=== PATIENT | male | born 1970 | race Caucasian/White ===

== ENCOUNTER 2021-07-01 10:17 | Emergency (ER) | payer OTHER ==
[2021-07-01 11:09] VITALS: BP 145/80; PULSE 81; RESP 18; TEMP 98.3
--- NOTE | 2021-07-01 11:09 | ED ---
Back Pain HPI - General Source: patient Mode of arrival: wheelchair Limitations: no limitations <Laurie Aguilar - Last Filed: 07/01/21 11:05> - General Source: patient, RN notes reviewed Mode of arrival: ambulatory Limitations: no limitations <Albert Jain - Last Filed: 07/01/21 13:23> - General Chief Complaint: Back Pain/Injury Stated Complaint: back pain Time Seen by Provider: 07/01/21 11:06 - History of Present Illness Initial Comments: Patient is a 50-year-old male, with hx of HTN, presenting to emergency Department with complaints of lower back pain 2 days. Patient states his back pain started after vacuuming with a shop vac 2 days ago. He denies any previous surgeries. No falls or trauma. Pain is rated a 6/10 when sitting and 11/10 with standing. No fevers or chills. Patient has some radiation of pain into the left leg, no numbness and tingling today. No bladder or bowel incontinence, no saddle paresthesias. (Laurie Aguilar) - Related Data Home Medications Medication Instructions Recorded Confirmed Atorvastatin [Lipitor] 20 mg PO DAILY 07/01/21 07/01/21 Loratadine [Claritin] 10 mg PO DAILY PRN 07/01/21 07/01/21 lisinopriL [Zestril] 10 mg PO DAILY 07/01/21 07/01/21 Previous Rx's Medication Instructions Recorded Cyclobenzaprine [Flexeril] 10 mg PO TID PRN #15 tab 07/01/21 predniSONE 50 mg PO DAILY #5 tab 07/01/21 Allergies Allergy/AdvReac Type Severity Reaction Status Date / Time No Known Allergies Allergy Verified 07/01/21 12:08 Review of Systems ROS Other: All systems not noted in ROS Statement are negative. <Laurie Aguilar - Last Filed: 07/01/21 11:05> ROS Other: All systems not noted in ROS Statement are negative. <Albert Jain - Last Filed: 07/01/21 13:23> ROS Statement: Those systems with pertinent positive or pertinent negative responses have been documented in the HPI. General Exam Limitations: no limitations General appearance: alert, in no apparent distress Head exam: Present: atraumatic Eye exam: Present: normal appearance <Laurie Aguilar - Last Filed: 07/01/21 11:05> Eye exam: Present: normal appearance, PERRL, EOMI. Absent: scleral icterus, conjunctival injection, periorbital swelling ENT exam: Present: normal exam, mucous membranes moist Neck exam: Present: normal inspection. Absent: tenderness, meningismus, lymphadenopathy Respiratory exam: Present: normal lung sounds bilaterally. Absent: respiratory distress, wheezes, rales, rhonchi, stridor Cardiovascular Exam: Present: regular rate, normal rhythm, normal heart sounds. Absent: systolic murmur, diastolic murmur, rubs, gallop, clicks GI/Abdominal exam: Present: soft, normal bowel sounds. Absent: distended, tenderness, guarding, rebound, rigid Extremities exam: Present: normal inspection, full ROM, normal capillary refill. Absent: tenderness, pedal edema, joint swelling, calf tenderness Back exam: Present: normal inspection Neurological exam: Present: alert, oriented X3, CN II-XII intact Psychiatric exam: Present: normal affect, normal mood Skin exam: Present: warm, dry, intact, normal color. Absent: rash <Albert Jain - Last Filed: 07/01/21 13:23> Course Vital Signs 07/01/21 07/01/21 11:06 12:08 Temperature 98.3 F Pulse Rate 81 Respiratory 18 18 Rate Blood Pressure 145/80 O2 Sat by Pulse 98 Oximetry Medical Decision Making <Albert aJin - Last Filed: 07/01/21 13:23> - Medical Decision Making Acute lumbar sprain, acute on chronic back pain. Pain treatment with high-dose steroids and muscle relaxant and pain management plan. Patient has no red flag symptoms. (Albert Jain) Disposition <Laurie Aguilar - Last Filed: 07/01/21 11:05> Is patient prescribed a controlled substance at d/c from ED?: No Time of Disposition: 13:23 <Albert Jain - Last Filed: 07/01/21 13:23> Clinical Impression: Lumbar back pain, Acute lumbar myofascial strain, Strain of lumbar region Disposition: HOME SELF-CARE Instructions (If sedation given, give patient instructions): Acute Low Back Pain (ED) Additional Instructions: Please return to the Emergency Department if symptoms worsen or any other concerns. Prescriptions: Cyclobenzaprine [Flexeril] 10 mg PO TID PRN #15 tab PRN Reason: Muscle Spasm predniSONE 50 mg PO DAILY #5 tab Referrals: Aubrey Cook MD [Primary Care Provider] - 1-2 days Brian Lyon DO [Doctor of Osteopathic Medicine] - 1-2 days
[2021-07-01] MEDS ORDERED: KETOROLAC 15 MG/ML 1 ML VIAL IM STA (11:54)
--- NOTE | 2021-07-01 12:57 | XR ---
Lumbosacral spine HISTORY: Low back pain 5 views of lumbosacral spine Lumbar vertebral bodies show preserved height and alignment, there is questionable spondylolysis at L 5, some rudimentary ribs suspected at L1. There is multilevel spondylosis. Some mild loss of disc hei ght at L4-5. Sclerosis is present in the posterior elements of the lower lumbar spine. Atheroscleroti c vascular calcifications are present in the aortoiliac distribution. IMPRESSION: Degenerative disc disease and facet arthropathy. Suspect spondylolysis at L5, CT or MRI c ould be performed for additional evaluation.
[2021-07-01] MEDS ORDERED: ACET/COD 300 MG/30 MG STARTER PACK 6 TAB BTL PO STA (13:22)
== END 2021-07-01 13:33 | disposition home or self-care (01) ==
LOC: EC 10:17
DX: S39.012A Strain of muscle, fascia and tendon of lower back, initial encounter (principal); I10 Essential (primary) hypertension; X50.0XXA Overexertion from strenuous movement or load, initial encounter
CPT/HCPCS: 99283; 96372; 72110; J1885

== ENCOUNTER → 2021-09-10 | Outpatient (CLI) | payer OTHER ==
--- NOTE | 2021-09-11 02:15 | CT ---
EXAMINATION TYPE: CT lumbar spine wo con DATE OF EXAM: 09/10/2021 COMPARISON: None HISTORY: low back pain CT DLP: 914 mGycm CONTRAST: None TECHNIQUE: CT of the lumbar spine is performed on a spiral scan at 3 mm thick sections. Reconstructed images are performed in the coronal and sagittal planes. FINDINGS: T12-L1: No focal disc herniation or significant disc bulge is evident. No spinal canal stenosis or neural foraminal stenosis is present. L1-L2: No focal disc herniation or significant disc bulge is evident. No spinal canal stenosis or n eural foraminal stenosis is present L2-L3: No focal disc herniation or significant disc bulge is evident. No spinal canal stenosis or n eural foraminal stenosis is present L3-L4: Minimal disc bulge may be present with intrathecal sac contact. No AP spinal canal stenosis or neural foraminal stenosis present. Facet hypertrophy is present. L4-L5: Broad-based disc bulge is present with mild anterior thecal sac compression. No AP spinal carolee l stenosis present. Neural foramen are patent. L5-S1: Mild broad-based disc bulge is present may have close approximation with the exiting S1 nerve roots adjacent to the thecal sac. No AP spinal canal stenosis present. No nerve root displacement is evident. Neural foramen appear patent. Note is made of bilateral spondylolysis at L5. Vertebral alignment appears normal. Disc heights appear preserved. IMPRESSION: 1. Broad-based disc bulging L3-4, L4-5, and L5-S1. 2. Spondylolysis of L5.
== END | disposition home or self-care (01) ==
LOC: RADCTMAIN 11:21
PROVIDERS: ATTEND Orthopaedic Surgery
DX: M51.27 Other intervertebral disc displacement, lumbosacral region (principal); M43.06 Spondylolysis, lumbar region
CPT/HCPCS: 72131

== ENCOUNTER → 2021-11-04 | Outpatient (CLI) | payer OTHER ==
[2021-11-04 12:57] VITALS: BP 153/88; PULSE 89; RESP 18; TEMP 98.4
--- NOTE | 2021-11-04 13:17 | P.CON ---
Consult Note - . Consult date: 11/04/21 Assessment/Plan:: HISTORY OF PRESENT ILLNESS: 50 year old male with a history of lumbar back pain due to lumbar degenerative disc disease, spondylosis and facet arthropathy presents today as a referral from Dr Lyon for a pain evaluation. States he was referred before an appt for CAGE in the lumbar spine on December 10, 2021 was set. Awaiting callback from staff at Dr Lyon's office. As of today, pt experiences " lumbar back pain all of my life." States his pain level waxes & wanes in intensity throughout the years, but is generally a 5 /10 in intensity currently. It is dull, achy, sore in the lower lumbar spine "like a band" left and right of midline and radiates down the sides of his legs towards his feet. Patient has underwent lumbar traction for years ever since he was a teenager. Pain is provoked with lifting and bending and twisting. Alleviated with medications, topicals, ice, heat, physical therapy years ago, stretching, rest and repositioning. PMH: HTN, Hyperlipidemia, Angina, Seasonal Allergies PSH: Jaw repair, bilateral CTS SH: 30 pack year tobacco user. Hx of ETOH abuse. No illicit drug use. Lives with parents FH: Non contributory All: NKDA Meds: See list REVIEW OF ORGAN SYSTEMS: CONSTITUTIONAL: No fevers or chills. No recent weight loss. HEENT: No visual acuity loss, eye pain, difficulties with hearing. No nosebleeds. No difficulty swallowing. RESPIRATORY: Denies any troubles with breathing or dyspnea on exertion. CARDIOVASCULAR: Denies any chest pain, palpitations, or recent heart attacks. GASTROINTESTINAL: Denies fatty food intolerance. Has change in bowel habits and gas bloat. GENITOURINARY: Denies any blood in urine. Has increased urinary frequency. NEUROLOGICAL: + numbness and tingling along the distal extremities. No seizure disorders or headaches. MUSCULOSKELETAL: + back pain SKIN: No skin cancer. No rash. PSYCHIATRIC: Denies current depression or suicidal thoughts. ENDOCRINE: Denies current thyroid disorders. Denies any blood sugar glucose intolerance. HEME/LYMPHATIC: Denies any lumps and bumps around the neck. History of deep venous thrombosis. ALLERGY/IMMUNOLOGY: No immunoglobulin therapy. No immune deficiencies. BREAST: Denies current breast lumps, pain or nipple discharge. Physical Examinations : Constitutional : Cooperative , not in acute distress . HEENT: Neck supple. No Lymphadenopathy. Normal thyroid size . Eyes no ptosis , no icterus, no photophobia . Hearing intact. Normal oropharynx. No Thrush. Respiratory : Chest clear to auscultations bilaterally. No wheezing. No rhonchi. Cardiovascular : Regular rate and rhythm , S1 / S2. No S3 . No S4. Gastrointestinal : Abdomen soft. No tenderness. Bowel sounds x 4. No organomegaly . Genitourinary : Deferred. Neurologic : Cranial nerve II to XII intact. No focal neurological deficits. Psychiatric : alert & oriented x 3. Matching mood & appropriate affect. Judgment & insight intact. Lymphatic No Lymphadenopathy. Musculoskeletal : Cervical Spine Motor strength in the deltoid and biceps: Normal right side. Normal Left side Motor strength biceps and the wrist extensors: Normal right side . Normal left side Motor strength in the triceps muscle: Normal right side. Normal left side Deep tendon reflexes: Normal at the biceps. Normal at Brachioradialis. Normal at triceps Cervical facet loading test: positive bilaterally Spurling test: positive bilaterally Neck distraction test: positive bilaterally Sulaiman sign: positive bilaterally Lumbar spine Motor strength lower extremities ,thigh and legs 5/5 Right side , 5/5 Left side Deep tendon reflexes : Normal Knee Jerk. Normal Ankle Jerk Lumbar facet Loading Test: positive Right / positive Left over L5 & S1 Range of motion of the lumbar spine Flexion 75 degrees, extension 10 degrees Straight Leg Raise test: Left/ Right positive at degree Isaac test: positive right / positive left. Severe tenderness over the Sacroiliac joint on the Right / Left sides Gaenslen test: positive bilaterally Seated flexion test: positive bilaterally. IMAGING CT Lumbar Spine from 09/10/2021 showed L3-L4 minimal disc bulge, L4-L5 broad based disc bulge, L5-S1 broad based disc bulge with approximation to the S1 nerve root and L5 spondylosis Assessment/ Plan : Recommendation of bilateral L5-S1 facet block/ medial branch blocks May need a series of 2 for sufficient pain relief May follow up with a bilateral RFA of the L5-S1 as necessary Risks benefits of procedure discussed and patient verbalized understanding Denies any spread and anticoagulant use All questions answered I have spent greater than 50 minutes on patient care today. Dr Andrew was available by phone for the evaluation of this patient. The time was used to review the medical records including relevant urine studies and Prescription history (MAPs), review of the available imaging, evaluation and examination of the patient, coordination of care with the medical staff and if applicable referring physicians, as well as creation of the medical record PQRS Measure Charge Sheet Mode of Arrival: Ambulatory - Pain Location Lower Back Non-Pharmacological Interventions: Chiropractic Treatment, Heat, Home Exercise, Ice, Inactivity, Massage, Physical Therapy, Stretching Pharmacological Interventions: Medication PQRS Narrative: Blood Pressure 153/88 Pain Intensity [Lower Back] 7 Scale Used Numeric (1 - 10) Hx Alcohol Use (MH) Yes: None in 2 1/2 yrs now. Home Medications: Ambulatory Orders Atorvastatin [Lipitor] 20 mg PO DAILY 07/01/21 Cyclobenzaprine [Flexeril] 10 mg PO TID PRN #15 tab 07/01/21 Loratadine [Claritin] 10 mg PO DAILY PRN 07/01/21 lisinopriL [Zestril] 10 mg PO DAILY 07/01/21 Nitroglycerin Sl Tabs [Nitrostat] 0.4 mg SUBLINGUAL Q5M PRN 10/29/21
== END ==
LOC: PNWHC3 12:28
PROVIDERS: ATTEND Physician Assistant Medical
DX: M48.061 Spinal stenosis, lumbar region without neurogenic claudication (principal); I10 Essential (primary) hypertension; E78.5 Hyperlipidemia, unspecified; Z79.899 Other long term (current) drug therapy
CPT/HCPCS: 99211

== ENCOUNTER → 2021-12-09 | Outpatient (CLI) | payer OTHER | END | disposition home or self-care (01) | LOC: LABPAT 10:14 | PROVIDERS: ATTEND Orthopaedic Surgery | DX: Z01.812 Encounter for preprocedural laboratory examination (principal); M47.816 Spondylosis without myelopathy or radiculopathy, lumbar region | CPT/HCPCS: 87070 ==

== ENCOUNTER 2021-12-10 05:53 | Inpatient (IN) | payer OTHER ==
--- NOTE | 2021-12-09 13:22 | P.HPOR ---
History of Present Illness H&P Date: 12/04/21 Chief Complaint: Low back pain, LE weakness Date of :[birth year] R14Age: 50 year Height: 5'9" Weight: 185 lbs BP:121/74 BMI: 27.32 kg/m2 Occupation: Ski Lift Operator VAS: 7 CHIEF COMPLAINT: Lumbar back pain HISTORY: Xrays No new xrays taken in office Trauma or injury yes Work-Related No Pain description aching, sharp. Location posterior diffuse Activity Modification yes , unable to perform bending/lifting/twisting motions regarding the low back. Hand Dominance right DOI: week of 05/30/2021 DOS: None TREATMENTS COMPLETED: 6 weeks of PT completed? Yes How many sessions? 12 Did it help? No Physician directed home exercise completed? Has trialed and failed to complete as they exacerbate his symptoms. Medications yes List: Medrol dose dulce, Flexeril with moderate improvement. Gabapentin, Mobic with mild improvements to his symptoms. Alternative interventions Chiropractic?: No Brace: No Injections No RFA: No SUBJECTIVE: Patient presents to the office for a pre-op review of the planned Lumbar 5 to Sacral 1 transforaminal lumbar interbody fusion. Since the time of the last appointment the patient denies any improvements to his symptoms. Overall he has failed to improve with all conservative modalities trialed thus far and is ready to proceed with the planned procedure. He notes continued disability and cannot complete many of his daily tasks due to his symptoms. Otherwise he continues to deny any bladder or bowel retention/incontinence, no perineal numbness/tingling, and ambulates independently. HPI: Patient last presented to the office on 10/14/2021 to review the results of his CT scan ordered after the time of the last appointment. Regarding his symptoms he notes that they have not changed since the time of the last appointment. He continues to note that he has difficulty with completing his daily activities as they exacerbate his symptoms. Otherwise the patient denies completing any new treatment modalities since the time of the last appointment. Overall the patient feels that his symptoms have continued to impede on his daily activities and he has failed to improve with any conservative treatments tried thus far. Patient continues to deny any bladder or bowel issues, no perineal numbness/tingling, and ambulates without the use of any aides. Patient last presented to the office on 09/02/2021. Since the time of the last appointment the patient notes that his symptoms have continued to persist. He does report improvements to his symptoms with taking Mobic, Gabapentin, and Flexeril but these are temporary. Overall he notes that he has not improved significantly with conservative treatments tried thus far. Otherwise he denies any bladder or bowel issues, no perineal numbness/tingling, and ambulates without the use of any aides. Mr. Garcia last presented to the office on 07/15/2021 for an evaluation of his low back. The patient reports that his symptoms have been ongoing for 2 weeks after bending over to pick something up and feeling a "snap" in his low back. Since this he notes that he has had severe pain in the low back along with an inability to perform bending/lifting/twisting motions. Since the initial injury he notes that he pain has waned mildly but is still limiting his daily functions severely. He notes an inability to work due to the pain. Patient denies any radicular pain. Regarding treatments he states that he has completed a Medrol dose dulce along with Flexeril that did improve his symptoms moderately. Otherwise the patient denies any bladder or bowel issues. Patient denies any numbness or tingling in the genitals. Levy does not present to the office with the use of any ambulatory aides. The patients' past social, medical, family, surgical history, as well as review of systems, have been reviewed. Please refer to the Neurosurgery History and Physical form that has been scanned in to our electronic medical record system. 14 points review of systems completed and as stated in HPI, all other systems reviewed are negative. Review of Systems 14 points review of systems completed and as stated in HPI, all other systems reviewed are negative. All systems: negative Past Medical History Past Medical History: Chest Pain / Angina, Hyperlipidemia, Hypertension, Musculoskeletal Disorder Additional Past Medical History / Comment(s): Palpitations. Spondylosis. History of Any Multi-Drug Resistant Organisms: None Reported Additional Past Surgical History / Comment(s): reconstruction maxilla and mandible for braces age 17. Past Anesthesia/Blood Transfusion Reactions: No Reported Reaction Past Psychological History: No Psychological Hx Reported Smoking Status: Current every day smoker Past Alcohol Use History: None Reported Additional Past Alcohol Use History / Comment(s): Smokes 1 ppd, since 17 yrs old. 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 Past Drug Use History: Marijuana Additional Drug Use History / Comment(s): Rare Marijuna use. - Past Family History Mother Family Medical History: No Reported History Medications and Allergies Home Medications Medication Instructions Recorded Confirmed Type Atorvastatin [Lipitor] 20 mg PO QAM 07/01/21 12/09/21 History Cyclobenzaprine [Flexeril] 10 mg PO TID PRN #15 tab 07/01/21 12/09/21 Rx Loratadine [Claritin] 10 mg PO DAILY PRN 07/01/21 12/09/21 History lisinopriL [Zestril] 10 mg PO QAM 07/01/21 12/09/21 History Nitroglycerin Sl Tabs [Nitrostat] 0.4 mg SUBLINGUAL Q5M PRN 10/29/21 12/09/21 History Meloxicam 15 mg PO DAILY 12/09/21 12/09/21 History Allergies Allergy/AdvReac Type Severity Reaction Status Date / Time No Known Allergies Allergy Verified 12/09/21 08:23 Physical Examination Osteopathic Statement: *. No significant issues noted on an osteopathic structural exam other than those noted in the History and Physical/Consult. PHYSICAL EXAMINATION: General: Awake, alert, appropriate for age, in no acute distress. HEENT: No unusual neck masses around region of lateral neck triangle, thyroid, supraclavicular groove Extremities: Skin warm and dry without acute lesions, coloration, temperature, skin intact, no tenderness or erythema Integument: Hairy patches: Absent Dorsal skin dimples: Absent Cafe au lait spots: Absent Surgical incisions: No Palpation: Please see Pain drawing on Intake sheet for further detail. Midline spinal tenderness: No E6 Paralumbar tenderness: mild E6 Parathoracic tenderness: No E6 Buttocks tenderness: No E6 Special findings: No POSTURAL and MUSCULO-SKELETAL EVALUATION: Coronal Balance: NEUTRAL Recumbent testing: Patient is able to lay flat on back Sagittal Balance: NEUTRAL Shoulder Profile: LEVEL Pelvic Girdle: LEVEL Neck ROM: UNRESTRICTED Lumbar ROM: RESTRICTED Shoulder ROM: Symmetrical Hip ROM: Symmetrical Knee ROM: Symmetrical Hands: Normal appearance, symmetrical Feet: Normal appearance, Symmetrical VASCULAR STATUS : LEFT RIGHT Wrist Pulses INTACT INTACT Pedal Pulses (Dors. pedis & post.tibialis) INTACT INTACT Color NORMAL NORMAL Edema Absent Absent NEUROLOGIC EXAMINATION: Mental Status:Awake and alert, fully oriented, with normal attention, concentration and memory, and fluent, appropriate speech. Cranial Nerves: I: Olfactory not tested. II: Visual acuity normal, no visual field deficit noted with confrontation. III,IV: Normal pupillary reflexes & intact extraocular movements without nystagmus. V,: Intact symmetrical facial sensation. VII: Intact symmetrical facial motor movement VIII: Hearing intact. IX,X: Intact gag, swallow, & normal voice. XI: Sternocleidomastoid, trapezius function intact. XII: Tongue midline with normal movements. L'hermitte's Sign: Negative / absent Spurling'Sign: Absent bilaterally. Cubital percussion test: Absent bilaterally. Karla-Tinel sign - Carpal region: Absent bilaterally. Straight Leg Raising: Absent bilaterally. Crossed straight leg raise: negative O8 MOTOR EXAM (0-5/5, N/T) STRENGTH RIGHT LEFT Shoulder Abd (not part of the [place] score) 5 5 Elbow Flexors 5 5 Elbow Extensor 5 5 Wrist Dorsiflexors 5 5 Finger Abductor 5 5 Jewel Hole Driller 5 5 Hip Flexor (Not part of [place] Motor score) 4 4 Knee Flexor 5 5 Knee Extensor 5 5 Ankle dorsiflexor 5 5 Ankle plantarflexion 4+ 4+ Extensor hallucis 5 5 Sit to stand took greater than 5 seconds REFLEXES(0-4/2, NT) RIGHT LEFT Upper Extremities 2 2 Lower Extremities 2 2 Pathological Reflexes RIGHT LEFT Benitez's Absent Absent Clonus Absent Absent Babinski Absent Absent # Indicates mechanical impairment Muscle appearance: Symmetrical, without signs of atrophy or dystrophy. Rectal Tone:Deferred Sensory system (0-4, N/T) Test type RU MIRACLE RL LL Joint-Position 2 2 2 2 Vibration 2 2 2 2 Pain & LT sense 2 2 2 2 Dermatomal Deficit: None None L4-5 L5-S1 Gait and Functional Evaluation: Ambulatory aids: Independent Romberg's test: Intact bilaterally Toe heel walk / heel-toe walk intact while maintaining satisfactory balance? yes Squatting/straightening w/o assistance to a min of 60 degree knee flexion? yes Single leg stance: intact Trendelenburg sign negative bilaterally Hand and finger dexterity intact bilaterally? yes Disdiadochokinesis examination negative bilaterally? yes Results RADIOGRAPHIC STUDIES: XRay taken on 07/15/21 of Lumbar Spine: This demonstrates bilateral L5 pars defects with spondylolysis and spondylolisthesis Grade I. There is some minor disc height loss at L5-S1, remainder of the discs appear of normal height and hydration. There is facet arthrosis noted at L5-S1 as well with overgrowth of interarticularis region. Overall alignment is fairly well maintained. There is no other fracture or dislocation at this time. No lesions. PI: LL is >10 60:49 deg AP pelvis shows congruent and level pelvis with no fracture. MRI scan from of Lumbar Spine: Outside MRI is reviewed. This demonstrates aformentioned L5-S1 b/l pars defects with Grade I anterior listhesis that reduces well on these supine films. Disc height and space at L5- S1 is relatively preserved on MRI, but L4-5 disc space is flattened and dehydrated. There is evidence of old disc herniation at L4-5 noted which causes minor stenosis at this level. There is little to no stenosis at L5-S1 at this time. No other lesion, fracture or dislocation is noted at this time. Assessment and Plan Assessment: It was my pleasure to have seen and examined Levy. I reviewed the patient's clinical syndrome, physical findings, and imaging studies during the appointment today. It is my impression that the patient has a diagnosis of. 1. 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 L5-S1 Spondylolysis I outlined the natural course history without intervention and various interventional options. Plan: Based on my findings I suggest the following course of action: 1. I discussed treatment options with the patient, including operative and non-operative options, and they have elected to proceed with the following surgical procedure: Lumbar 5 to Sacral 1 transforaminal lumbar interbody fusion The indications, risks, benefits, and alternatives to surgery were discussed with the patient at length. Specifically (but not limited to) the risks of infection, stiffness, recurrence of symptoms, need for revision surgery, local numbness, neurovascular injury, and blood clots were discussed. The patient's questions were answered. The decision to proceed was made. Consent will be obtained for the procedure. 2. Given a script for a LSO brace for him to wear post-operatively. Spine Surgery Risk Review Levy Garcia is presenting for evaluation of Lumbar pain. It was my pleasure to have seen and examined Levy Garcia. In our visit today we have had a chance to go over subjective complaints, physical examination findings and treatments including the natural course history without intervention and various interventional options. The patients imaging demonstrates Xrays: This demonstrates bilateral L5 pars defects with spondylolysis and spondylolisthesis Grade I. There is some minor disc height loss at L5-S1, remainder of the discs appear of normal height and hydration. There is facet arthrosis noted at L5-S1 as well with overgrowth of interarticularis region. Overall alignment is fairly well maintained. There is no other fracture or dislocation at this time. No lesions. PI: LL is >10 60:49 deg. AP pelvis shows congruent and level pelvis with no fracture. MRI: Outside MRI is reviewed. This demonstrates aformentioned L5-S1 b/l pars defects with Grade I anterior listhesis that reduces well on these supine films. Disc height and space at L5-S1 is relatively preserved on MRI, but L4-5 disc space is flattened and dehydrated. There is evidence of old disc herniation at L4-5 noted which causes minor stenosis at this level. There is little to no stenosis at L5-S1 at this time. No other lesion, fracture or dislocation is noted at this time. On physical exam, Levy Garcia demonstrates bilateral lower extremity radiculopathy with significant pain and weakness. Upon testing the patient does demonstrate L4_l5 right lower extremity dermatomal deficit and L5- S1 left lower extremity deficits. Lastly his ROM regarding the lumbar spine is restricted due to pain. I have explained to the patient that as their condition progresses it will cause further neurological deficits and eventual paralysis. Based on the patients imaging, physical exam, and the rapid progression and disabling nature of their symptoms, at this time I recommend surgery in the form or a: Lumbar 5 to Sacral 1 transforaminal lumbar interbody fusion. I discussed the risk and benefits of this procedure at length with Levy Garcia. The patient and his family agreed to considered pursuing the procedure abovementioned. Prior to surgery, she should follow up with her PCP (Cardio, ID, IM etc) for clearance. Questions were invited and answered, and the patient wishes to proceed as outlined below. Currently, I am recommendin.Lumbar 5 to Sacral 1 transforaminal lumbar interbody fusion 2.Follow up with PCP for surgical clearance 3.Review of surgical risks and benefits as well as an educational packet on the proposed surgical procedure. Risks: All surgical procedures come with inherent risks, including those related to positioning, anesthesia, intraoperative findings, and postoperative complications. It is important to understand that surgery does not come with any guarantee of a successful outcome as complications and adverse events are always possible. The patient was given a handout in office today discussing the surgical procedure and risks associated with the intervention, both of which were discussed with the patient. These risks include but are not limited to the following: * Experiencing same, different or even worse symptoms in back, neck, arms, or legs compared to before surgery. Requiring further surgery or other forms of treatment presently or at some time in the future at same or other levels of the intended spine surgery. On an extreme but fortunately relatively rare basis severe complication such as blindness, stroke, heart attack, temporary and/or permanent nerve injury, paralysis, coma, or may occur, sometimes without known explanation. Surgical complications may include but are not limited to risk of infection, fluid accumulation in the surgical dissection site, including a seroma or hematoma, that requires additional surgery, wound drainage, bleeding, new numbness or weakness, vision changes/loss, spinal fluid leakage, non-healing and/or infected incision, headaches, difficulty or inability to swallow, hoarseness, hemopneumothorax, pneumothorax, impotence, retrograde ejaculation, vaginal dryness; injury to nerves, spinal cord, blood vessels, lymphatics or other vital organs (i.e., bowel injury, injury to the great vessels); heterotopic bone formation; complications related to the hardware such as screws, rods, cages including misplaced hardware, device failure, instrumentation at the wrong spine level, hardware fracture/breakage, or hardware loosening; vertebral failure of the spinal column above or below the newly placed hardware; retained surgical instrumentations or devices and the need for further surgery. * Medical risks of the planned spine surgery include but are not limited to generalized Infections to the whole body or local areas outside of the surgical site (sepsis), heart attack, bleeding, anaphylaxis, meningitis, seizure, epilepsy, hearing loss, burn galicia, laceration of the head or other areas of the body, bruising, hypersensitivity of the skin, bladder over distension; allergic reaction; shoulder injury related to positioning; fat, blood and air clots to other areas of the body like heart, lungs, brain; failure of internal organs such as lungs, kidneys, liver and excessive bleeding. If blood transfusions are necessary, note that transfusions may cause intolerance reactions such as anaphylaxis or other complex reactions. Despite best efforts, the results of spine surgery might not heal in terms of bone, soft tissues such as skin, fascia, ligaments, and joints. Additionally, in order to achieve best possible results, spine surgery may be carried out beyond the initially planned levels and involve decompression, fusion including insertion of hardware at levels other than the original intended area of surgical interest change some portions of the procedure in order to ensure the best possible outcomes. With spine surgery and spinal fusion, there are different off label uses of instrumentation (devices, implants and hardware) as well as biological substances (bone morphogenic proteins, demineralized bone matrix) as well as using extra bone from allograft sources (i.e. cadaver bone) or autograft (iliac crest bone, ribs, or the spine itself). The patient has been given information about these practices and their inherent risks and benefits. [facility] is an educational center that serves as a training facility for [employer] and Nursing students. Physician assistants are medically trained surgical providers who function in the outpatient, inpatient, and operating room setting under the direct supervision of the attending surgeon. [facility] has multiple operating rooms with single and overlapping rooms running daily. They currently function under the required guidelines as produced by the [facility] Finance Committee with regards to the overlapping rooms and will continue to comply with changes to this policy as they occur. The requirements include and are complied with as follows: (1) the critical portions of the overlapping rooms will not occur at the same time, (2) the attending physician will be physically present during the critical portions of the procedure and immediately available during the entire case, and (3) a back-up attending is designated should the primary attending not be immediately available. The patient has had a chance to review all the listed information, has been given print outs detailing this information, and has had all his/her questions answered to their satisfaction. It was my pleasure to have seen and examined Levy Garcia. In our visit today we have had a chance to go over my understanding of our patient's current condition, the natural course history without intervention and various interventional options. Questions were invited and answered, and the patient wishes to proceed as outlined above. I have seen and examined the patient for 25 minutes and we have spent more than 50% of the time in repeat and detailed counseling about the patient's condition, its natural course history with out and as much as can be predicted with surgery and re-review of various surgical treatment options. In conclusion, Levy Garcia and his family requested we proceed with the above suggested surgery and are willing to accept risks and limitations of the suggested surgery as nature of the disease process and our best attempts at treatment for the condition. Thank you again for allowing us to be part of your patient's care. Please don't hesitate to contact me if you have any further questions. Signed and authenticated by: [employer] P:\\\\ppart\\\\[id number]\\\\[id number] \\d [facility] [address] [address]
[~2021-12-10 05:53] MED LIST: ACETAMINOPHEN TAB 500 MG TAB PO PRN; GABAPENTIN 300 MG CAP PO PRN; ONDANSETRON 4 MG/2 ML VIAL IVP PRN; TRANEXAMIC ACID 1,000 MG in SODIUM CHLORIDE 0.9% 100 ML IVPB PRN
[2021-12-10] MEDS ORDERED: ONDANSETRON 4 MG/2 ML VIAL IVP ONE (06:01)
[2021-12-10] MEDS ORDERED: LIDOCAINE 1% (10MG/ML) FOR IV START INTRADERMA PRN (06:01)
[2021-12-10] MEDS ORDERED: TRANEXAMIC ACID IN NACL,ISO-OS 100 ML IV PRN (06:43)
[2021-12-10] MEDS: LACTATED RINGERS 1,000 ML IV SCH (06:45)
[2021-12-10] MEDS ORDERED: HYDROmorphone 0.5 MG/0.5 ML SYRINGE IVP PRN (07:00)
[2021-12-10 07:11] LABS: HCT 40.3 % (39.0-53.0); HGB 14.2 gm/dL (13.0-17.5); MCHC 35.2 g/dL (31.0-37.0); MCV 91.1 fL (80.0-100.0); Mean Platelet Volume 8.7; Platelet Count 213 k/uL (150-450); RBC 4.43 m/uL (4.30-5.90); RDW 12.5 % (11.5-15.5); WBC 10.8 k/uL (3.8-10.6)
[2021-12-10 07:14] LABS: African American GFR (CKD) >90 (>60 ml/min/1.73 sqM); Anion Gap 6 mmol/L; Blood Urea Nitrogen 14 mg/dL (9-20); Calcium 9.4 mg/dL (8.4-10.2); Carbon Dioxide 25 mmol/L (22-30); Chloride 108 mmol/L (98-107); Glucose 100 mg/dL (74-99); Non-African American GFR(CKD) >90 (>60 ml/min/1.73 sqM); Potassium 4.2 mmol/L (3.5-5.1); Sodium 139 mmol/L (137-145)
[2021-12-10] MEDS ORDERED: LIDOCAINE 1% INJ 10MG/ML (20 ML MDV) ONE (07:22)
[2021-12-10] MEDS ORDERED: NEOSTIGMINE 1 MG/ML 10 ML VIAL ONE (07:22)
[2021-12-10] MEDS ORDERED: MIDAZOLAM 2 MG/2 ML VIAL ONE (07:22)
[2021-12-10] MEDS ORDERED: HYDROmorphone (PF) 1 MG/ML ONE (07:22)
[2021-12-10] MEDS ORDERED: GLYCOPYRROLATE 0.2 MG/ML 2 ML VIAL ONE (07:22)
[2021-12-10] MEDS ORDERED: SUCCINYLCHOLINE CHLORIDE 100 MG/5 ML SYR IV ONE (07:22)
[2021-12-10] MEDS ORDERED: ROCURONIUM 10 MG/ML (5 ML VIAL) IV ONE (07:22)
[2021-12-10] MEDS ORDERED: fentaNYL (PF) 50 MCG/ML 2 ML AMP ONE (07:22)
[2021-12-10] MEDS ORDERED: TRANEXAMIC ACID IN NACL,ISO-OS 1,000 MG/100 ML BAG ONE (07:22)
[2021-12-10] MEDS ORDERED: PROPOFOL 10 MG/ML 20 ML VIAL IV ONE (07:22)
[2021-12-10 07:31] LABS: INR 0.9 (<1.2); Prothrombin Time 10.3 sec (9.0-12.0)
[2021-12-10] MEDS ORDERED: BUPIVACAINE (PF) 0.25% 30 ML VIAL SQ ONE (08:33)
[2021-12-10] MEDS ORDERED: GELATIN SPONGE,ABSORB (LARGE) 1 EACH SPONGE MISCELLANE ONE (08:33)
[2021-12-10] MEDS ORDERED: THROMBIN (BOVINE) 5,000 UNIT VIAL TOPICAL ONE (08:34)
[2021-12-10] MEDS ORDERED: LACTATED RINGERS 1,000 ML IV ONE (09:13)
[2021-12-10] MEDS ORDERED: SENNOSIDES-DOCUSATE SODIUM 1 EACH TAB PO PRN (10:44)
[2021-12-10] MEDS ORDERED: MAGNESIUM HYDROXIDE 2,400 MG/10 ML CUP PO PRN (10:44)
[2021-12-10] MEDS ORDERED: ONDANSETRON 4 MG/2 ML VIAL IVP PRN (10:44)
[2021-12-10] MEDS ORDERED: bisacodyL 10 MG SUPP RECTAL PRN (10:44)
[2021-12-10] MEDS ORDERED: NA PHOS,M-B/NA PHOS,DI-BA 133 ML ENEMA RECTAL PRN (10:44)
[2021-12-10] MEDS ORDERED: MAG HYDROX/AL HYDROX/SIMETH 30 ML CUP PO PRN (10:44)
[2021-12-10] MEDS ORDERED: HYDROcodone/APAP 7.5-325MG 1 EACH TAB PO PRN (10:51)
--- NOTE | 2021-12-10 11:48 | FL ---
Fluoroscopy HISTORY: Posterior lumbar fusion 2 minutes 24 seconds fluoroscopy time supplied to the referring clinician. 9 intraoperative C-arm im ages document the procedure. See dictated report from orthopedic surgery.
[2021-12-10] MEDS: SODIUM CHLORIDE 0.9% 1,000 ML IV SCH (13:57)
[2021-12-10] MEDS: HYDROcodone/APAP 7.5-325MG 1 EACH TAB PO PRN ×2 (15:06→21:51)
--- NOTE | 2021-12-10 16:11 | P.PN ---
Progress Note - Text Progress Note Date: 12/10/21 Brief postoperative note patient seen and examined the floor is doing well. He is sitting up eating dinner. States he has some pain on the left-hand side of his low back but otherwise is doing well. His been up and walking. Denies any perineal numbness tingling. Denies fevers chills shortness of breath or chest pain. We will continue standard postoperative care and likely discharge him tomorrow.
[2021-12-10] MEDS: HYDROmorphone 1 MG/ML 1 ML SYRINGE IVP PRN ×3 (17:37→23:33)
[2021-12-10] MEDS: CYCLOBENZAPRINE 5 MG TAB PO PRN (21:52)
--- NOTE | 2021-12-10 22:35 | P.CONS ---
History of Present Illness - History of Present Illness This is a pleasant 51 years old male with past medical history of Chest Pain / Angina, Hyperlipidemia, Hypertension Patient presents because of low back pain been going on for several weeks. He has some mild weakness on his legs more of the left side prior to the surgery. And reports improvement in his weakness. He is able to walk. He denies numbness or bowel issue or urinary incontinence. He denies any other symptoms. No chest pain or dyspnea. No vomiting or diar sabina. No abdominal pain or urinary complaints. No headache or dizziness or weakness or numbness He denies alcohol or illicit drugs however he smokes about 1 pack per day and he is counseled but he declined nicotine patch Previous MRI showing L5-S1 b/l pars defects with Grade I anterior listhesis that reduces well on these supine films. Disc height and space at L5-S1 is relatively preserved on MRI, but L4-5 disc space is flattened and dehydrated. There is evidence of old disc herniation at L4-5 noted which causes minor stenosis at this level. There is little to no stenosis at L5-S1 at this time. No other lesion, fracture or dislocation is noted at this time (per Records) Review of Systems CONSTITUTIONAL: No fever, no malaise, no fatigue. HEENT: No recent visual problems or hearing problems. Denied any sore throat. CARDIOVASCULAR: No orthopnea, PND, no palpitations, no syncope. PULMONARY: No shortness of breath, no cough, no hemoptysis. GASTROINTESTINAL: No diarrhea, no nausea, no vomiting, no abdominal pain. Normoactive bowel sounds. NEUROLOGICAL: No headaches, no weakness, no numbness. HEMATOLOGICAL: Denies any bleeding or petechiae. GENITOURINARY: Denies any burning micturition, frequency, or urgency. MUSCULOSKELETAL/RHEUMATOLOGICAL: Denies any joint pain, swelling, or any muscle pain. ENDOCRINE: Denies any polyuria or polydipsia. Past Medical History Past Medical History: Chest Pain / Angina, Hyperlipidemia, Hypertension, Musculoskeletal Disorder Additional Past Medical History / Comment(s): Palpitations. Spondylosis. History of Any Multi-Drug Resistant Organisms: None Reported Additional Past Surgical History / Comment(s): reconstruction maxilla and mandible for braces age 17. Past Anesthesia/Blood Transfusion Reactions: No Reported Reaction Past Psychological History: No Psychological Hx Reported Smoking Status: Current every day smoker Past Alcohol Use History: None Reported Additional Past Alcohol Use History / Comment(s): Smokes 1 ppd, since 17 yrs old. 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 Past Drug Use History: Marijuana Additional Drug Use History / Comment(s): Rare Marijuna use. - Past Family History Mother Family Medical History: No Reported History Medications and Allergies Home Medications Medication Instructions Recorded Confirmed Type Atorvastatin [Lipitor] 20 mg PO QAM 07/01/21 12/10/21 History Cyclobenzaprine [Flexeril] 10 mg PO TID PRN #15 tab 07/01/21 12/10/21 Rx Loratadine [Claritin] 10 mg PO DAILY PRN 07/01/21 12/10/21 History lisinopriL [Zestril] 10 mg PO QAM 07/01/21 12/10/21 History Nitroglycerin Sl Tabs [Nitrostat] 0.4 mg SUBLINGUAL Q5M PRN 10/29/21 12/10/21 History Meloxicam 15 mg PO DAILY 12/09/21 12/10/21 History Allergies Allergy/AdvReac Type Severity Reaction Status Date / Time No Known Allergies Allergy Verified 12/10/21 06:24 Physical Exam Vitals: Vital Signs Temp Pulse Resp BP Pulse Ox 12/10/21 13:43 97.9 F 67 114/73 98 12/10/21 13:19 75 16 110/70 96 12/10/21 12:36 61 16 110/68 100 12/10/21 12:17 53 L 16 106/64 99 12/10/21 12:03 51 L 16 103/59 99 12/10/21 11:47 54 L 16 99/58 97 12/10/21 11:32 55 L 16 110/67 91 L 12/10/21 11:17 62 16 112/62 94 L 12/10/21 11:07 63 16 116/59 96 12/10/21 10:52 97.2 F L 63 16 117/64 100 12/10/21 06:22 98.0 F 90 16 121/62 98 Intake and Output 12/10/21 12/10/21 12/10/21 06:59 14:59 22:59 Intake Total 100 1550 Output Total 50 Balance 100 1500 Intake: IV 100 1550 Output: Estimated Blood Loss 50 Other: Weight 88.3 kg 88.3 kg GENERAL: The patient is alert and oriented x3, not in any acute distress. Well developed, well nourished. HEENT: Pupils are round and equally reacting to light. EOMI. No scleral icterus. No conjunctival pallor. Normocephalic, atraumatic. No pharyngeal erythema. No thyromegaly. CARDIOVASCULAR: S1 and S2 present. No murmurs, rubs, or gallops. PULMONARY: Chest is clear to auscultation, no wheezing or crackles. ABDOMEN: Soft, nontender, nondistended, normoactive bowel sounds. No palpable organomegaly. -MUSCULOSKELETAL: No joint swelling or deformity. Surgical wound in the lower back with the dressing place. Rest of exam is deferred to surgery primary team EXTREMITIES: No cyanosis, clubbing, or pedal edema. NEUROLOGICAL: Gross neurological examination did not reveal any focal deficits. SKIN: No rashes. No petechiae Results CBC & Chem 7: 12/10/21 06:45 12/10/21 06:45 Labs: Abnormal Lab Results - Last 24 Hours (Table) 12/10/21 12/10/21 Range/Units 06:45 06:45 WBC 10.8 H (3.8-10.6) k/uL Chloride 108 H (98-107) mmol/L Glucose 100 H (74-99) mg/dL Assessment and Plan Assessment: Bilateral L5 Pars defect with spondylolysis , status post Lumbar 5 to Sacral 1 lumbar interbody fusion nicotine dependence Hypertension Hyperlipidemia Plan: This is a pleasant 51 years old male who presents with L5 pars defect status post lumbar fusion Continue with pain management and postop care per orthopedics primary team. DVT prophylaxis at pain management per primary team. Patient is counseled to quit smoking and he agrees to keep trying. declinde Riley otine patch Labs and medication were reviewed.. Continue same treatment. Continue with symptomatic treatment. Resume home medication. Monitor lytes and vitals. DVT and GI prophylaxis. Further recommendations as per clinical course of the patient Thank you for consulting us
[2021-12-11] MEDS: HYDROmorphone 1 MG/ML 1 ML SYRINGE IVP PRN ×6 (02:49→20:18)
[2021-12-11] MEDS: CYCLOBENZAPRINE 5 MG TAB PO PRN ×2 (05:24→16:23)
[2021-12-11] MEDS: HYDROcodone/APAP 7.5-325MG 1 EACH TAB PO PRN ×2 (06:00→12:32)
[2021-12-11] MEDS ORDERED: DEXAMETHASONE SOD PHOSPHATE 10 MG/ML 1 ML VIAL IV STA (08:29)
--- NOTE | 2021-12-11 08:29 | P.PN ---
Subjective Progress Note Date: 12/11/21 Principal diagnosis: L5 spondylolysis Patient seen and examined is doing okay this morning. He complains of increased pain in his low back as well as left lower extremity pain that seems good on the back of his leg into his foot. He denies any weakness states no perineal numbn ess or tingling no bowel or bladder issues he is urinating appropriately passing gas. He has been up and walking. He denies any fevers chills shortness of breath or chest pain at this time. Objective - Vital Signs Vital signs: Vital Signs Temp 99.2 F 12/11/21 07:34 Pulse 110 H 12/11/21 07:34 Resp 22 12/11/21 07:34 BP 127/80 12/11/21 07:34 Pulse Ox 93 L 12/11/21 07:34 Intake & Output 12/10/21 12/11/21 12/11/21 18:59 06:59 18:59 Intake Total 1550 Output Total 50 Balance 1500 Weight 88.3 kg Intake: IV 1550 Output: Estimated Blood Loss 50 Other: Voiding Method Toilet # Voids 2 - Exam Patient is alert and oriented 3 appears well-nourished well-hydrated is in no acute distress. They do not appear septic. On exam the patient has mild tenderness to palpation of lumbar spine There is no edema or ballottement sign. Lower extremities with [5]/5 strength in all major muscle groups Upper extremities show [5]/5 strength in all major muscle groups. [] [2]/4DTR all UE and LE b/l Patient shows a negative Homans, Benitez's, negative Babinski's negative clonus bilaterally. negative straight leg raise bilaterally. He is showing mild straight leg raise on the left today. This is in the S1 d istribution Cranial nerves II through XII are grossly intact. There is FROM that is painless of the b/l UE and LE in all major joints [w/o pain]. They are intact to light touch sensation in L2 to S1 nerve distribution. Patient has palpable dorsalis pedis was posterior tibial pulses. Compartments are soft and compressible. Incisions are clean dry and intact - Labs CBC & Chem 7: 12/10/21 06:45 12/10/21 06:45 Assessment and Plan Assessment: 51-year-old male postoperative day 1 L5-S1 MISTLLIF 1. 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 L5-S1 Spondylolysis Plan: -Appreciate retail wireless sales consultant and team management. -Activity: Ambulate QID, OOB all meals, up and about, limit lifting bending twisting to less than 5 lbs. Use walker or cane if needed for stability. -Daily PT/OT, increase ambulation strength and balance. -Brace when up and about, not needed in bed or chair -Pain control: Adequate at this time -Meds: reviewed -GI ppx: senna, Miralax -DC calderon when up and about, bedside commode if needed -DVT PPX: OK to restart Heparin tonight -Hygiene: Shower today. Maintain dressing clean and dry. Meticulous cleaning after BMs away from incision site -Drains: Maintain for now. Record output -Encourage IS 10x/hr -Dispo: Pending likely home tomorrow
[2021-12-11 08:46] LABS: Basophils # (A) 0.04 X 10*3/uL (0.00-0.10); Basophils % (A) 0.3 %; Eosinophils % (A) 0.6 %; HCT 39.7 % (39.6-50.0); HGB 13.5 g/dL (13.0-17.0); Immature Grans, Automated 0.4 %; Lymphocytes % (A) 8.9 %; MCH 31.3 pg (27.0-32.0); MCV 91.9 fL (80.0-97.0); Mean Platelet Volume 11.3 fL (9.5-12.2); Monocytes # (A) 0.99 X 10*3/uL (0.20-1.00); Monocytes % (A) 6.3 %; NRBC Per 100 WBC 0 /100 WBCS (0.0-0.0); Neutrophils # (A) 13.12 X 10*3/uL (1.80-7.70); Neutrophils % (A) 83.5 %; Platelet Count 191 X 10*3/uL (140-440); RBC 4.32 X 10*6/uL (4.40-5.60); RDW 12.6 % (11.5-14.5); WBC 15.71 X 10*3/uL (4.50-10.00)
[2021-12-11 08:59] LABS: African American GFR (CKD) 128.4 (60.0-200.0); Anion Gap 11.3 mmol/L (10.00-18.00); BUN/Creat Ratio 14.71 Ratio (12.00-20.00); Blood Urea Nitrogen 10.3 mg/dL (9.0-27.0); Calcium 8.9 mg/dL (8.7-10.3); Carbon Dioxide 22.7 mmol/L (20.0-27.5); Non-African American GFR(CKD) 110.8 (60.0-200.0); Potassium 4.1 mmol/L (3.5-5.5)
--- NOTE | 2021-12-11 09:56 | CT ---
EXAMINATION TYPE: CT lumbar spine wo con DATE OF EXAM: 12/11/2021 9:27 AM COMPARISON: CT dated 09/10/2021 HISTORY: Post-op pain CT DLP: 999.4 mGycm Automated exposure control for dose reduction was used. TECHNIQUE: Unenhanced CT of the lumbar spine was performed. Bone and soft tissue window settings are submitted as well as coronal and sagittal reconstructions. FINDINGS: Known bilateral L5 pars break. Interval transpedicular fixation of L5 and S1 using 2 rods and 4 screw s with L5-S1 disc prosthesis. No evidence of prosthesis break. Acute postoperative changes with opera tive bed soft tissue swelling, gas and overlying skin leanne. Fluid is seen in the subcutaneous tiss ue at the operative level without obvious localization by this nonenhanced CT scan. Multiple air bubb les are seen within the spinal canal from T12 down to S3 level. L1-L2: No significant central spinal canal stenosis or neuroforaminal stenosis. L2-L3: No significant central spinal canal stenosis or neuroforaminal stenosis. L3-L4: Spinal canal air bubbles, likely related to postoperative changes. Mild diffuse posterior disc bulge without significant central spinal canal stenosis or neuroforaminal stenosis. L4-L5: Artifacts with suboptimal assessment of the disc, spinal canal and neural foramina. There is n o obvious neuroforaminal stenosis. Spinal canal stenosis cannot be assessed. L5-S1: Operative bed with artifactual images and suboptimal assessment for the disc, spinal canal and neuroforamina. Spinal canal stenosis or neuroforaminal stenosis cannot be excluded at that level. Scattered arterial atherosclerotic calcifications. No paraspinal lesion. IMPRESSION: Acute postoperative changes as described above.
[2021-12-11] MEDS: GABAPENTIN 300 MG CAP PO SCH ×3 (10:20→22:41)
[2021-12-11] MEDS: LACTATED RINGERS 1,000 ML IV SCH (12:11)
[2021-12-11] MEDS: SODIUM CHLORIDE 0.9% 1,000 ML IV SCH (12:33)
[2021-12-11 21:24] VITALS: RESP 16
--- NOTE | 2021-12-11 21:55 | P.PN ---
Subjective This is a pleasant 51 years old male with past medical history of Chest Pain / Angina, Hyperlipidemia, Hypertension Patient presents because of low back pain been going on for several weeks. He has some mild weakness on his legs more of the left side prior to the surgery. And reports improvement in his weakness. He is able to walk. He denies numbness or bowel issue or urinary incontinence. He denies any other symptoms. No chest pain or dyspnea. No vomiting or diarrhea. No abdominal pain or urinary complaints. No headache or dizziness or weakness or numbness He denies alcohol or illicit drugs however he smokes about 1 pack per day and he is counseled but he declined nicotine patch Previous MRI showing L5-S1 b/l pars defects with Grade I anterior listhesis that reduces well on these supine films. Disc height and space at L5-S1 is relatively preserved on MRI, but L4-5 disc space is flattened and dehydrated. There is evidence of old disc herniation at L4-5 noted which causes minor stenosis at this level. There is little to no stenosis at L5-S1 at this time. No other lesion, fracture or dislocation is noted at this time (per Records) 12/11/2021 Patient still complaining from pain at surgical sites which is expected, he denies chest pain or dyspnea or headache or weakness or numbness. He still has no bowel movement but he declined laxative. ((Lumbar spine CT. Showed postoperative changes with no evidence of prosthesis break acute postoperative changes with operative bit of soft tissue swelling, gas and overlying skin leanne. Fluid is seen in the subcutaneous tissue at the operative level without obvious localization.Lumbar spine CT. Showed postoperative changes with no evidence of prosthesis break acute postoperative changes with operative bit of soft tissue swelling, gas and overlying skin leanne. Fluid is seen in the subcutaneous tissue at the operative level without obvious localization.)) Patient is mildly tachycardic, he has some leukocytosis but also he is on steroids. Also he was started on gabapentin by surgery team will follow on the case closely. Objective - Vital Signs Vital signs: Vital Signs Temp 99.2 F 12/11/21 07:34 Pulse 110 H 12/11/21 07:45 Resp 22 12/11/21 07:45 BP 127/80 12/11/21 07:34 Pulse Ox 93 L 12/11/21 07:34 Intake & Output 12/10/21 12/11/21 12/11/21 18:59 06:59 18:59 Intake Total 1550 Output Total 50 Balance 1500 Weight 88.3 kg Intake: IV 1550 Output: Estimated Blood Loss 50 Other: Voiding Method Toilet Toilet # Voids 2 - Exam GENERAL: The patient is alert and oriented x3, not in any acute distress. Well developed, well nourished. HEENT: Pupils are round and equally reacting to light. EOMI. No scleral icterus. No conjunctival pallor. Normocephalic, atraumatic. No pharyngeal erythema. No thyromegaly. CARDIOVASCULAR: S1 and S2 present. No murmurs, rubs, or gallops. PULMONARY: Chest is clear to auscultation, no wheezing or crackles. ABDOMEN: Soft, nontender, nondistended, normoactive bowel sounds. No palpable organomegaly. -MUSCULOSKELETAL: No joint swelling or deformity. Surgical wound in the lower back with the dressing place. Rest of exam is deferred to surgery primary team EXTREMITIES: No cyanosis, clubbing, or pedal edema. NEUROLOGICAL: Gross neurological examination did not reveal any focal deficits. SKIN: No rashes. No petechiae - Labs CBC & Chem 7: 12/11/21 04:48 12/11/21 04:48 Labs: Abnormal Lab Results - Last 24 Hours (Table) 12/11/21 Range/Units 04:48 WBC 15.71 H (4.50-10.00) X 10*3/uL RBC 4.32 L (4.40-5.60) X 10*6/uL Immature Gran # 0.06 H (0.00-0.04) X 10*3/uL Neutrophils # 13.12 H (1.80-7.70) X 10*3/uL Assessment and Plan Assessment: Bilateral L5 Pars defect with spondylolysis , status post Lumbar 5 to Sacral 1 lumbar interbody fusion nicotine dependence Hypertension Hyperlipidemia Plan: This is a pleasant 51 years old male who presents with L5 pars defect status post lumbar fusion Continue with pain management and postop care per orthopedics primary team. DVT prophylaxis at pain management per primary team. Patient is counseled to quit smoking and he agrees to keep trying. declinde Nicotine patch Labs and medication were reviewed.. Continue same treatment. Continue with symptomatic treatment. Resume home medication. Monitor lytes and vitals. DVT and GI prophylaxis. Further recommendations as per clinical course of the patient Thank you for consulting us
[2021-12-12] MEDS: HYDROcodone/APAP 7.5-325MG 1 EACH TAB PO PRN ×2 (01:34→11:25)
[2021-12-12] MEDS: CYCLOBENZAPRINE 5 MG TAB PO PRN (04:34)
[2021-12-12] MEDS: SODIUM CHLORIDE 0.9% 1,000 ML IV SCH (07:51)
[2021-12-12] MEDS: LACTATED RINGERS 1,000 ML IV SCH (07:52)
[2021-12-12] MEDS: GABAPENTIN 300 MG CAP PO SCH (08:09)
[2021-12-12 08:27] VITALS: BP 116/72; PULSE 94; TEMP 98.5
[2021-12-12] MEDS ORDERED: ATORVASTATIN 20 MG TAB PO SCH (09:00)
--- NOTE | 2021-12-12 11:03 | P.PN ---
Subjective Progress Note Date: 12/12/21 Principal diagnosis: L5 spondylolysis Patient seen and examined this morning is been doing well he states he is ready to go home. He denies perineal numbness or tingling states his left leg feels much better denies any other symptoms overnight. Objective - Vital Signs Vital signs: Vital Signs Temp 98.5 F 12/12/21 07:19 Pulse 94 12/12/21 07:19 Resp 16 12/12/21 02:00 BP 116/72 12/12/21 07:19 Pulse Ox 98 12/12/21 07:19 Intake & Output 12/11/21 12/12/21 12/12/21 18:59 06:59 18:59 Intake Total 1680 Balance 1680 Intake: Intake, IV Titration 800 Amount Sodium Chloride 0.9% 1, 800 000 ml @ 50 mls/hr IV . Q20H [facility] Rx#:[id number] Oral 880 Other: Voiding Method Toilet Toilet # Voids 3 5 - Exam Exam repeated today changes noted below. Tensioning signs much better on the left lower extremity no weakness no pathologic reflexes incisions are clean and dry. Patient is alert and oriented 3 appears well-nourished well-hydrated is in no acute distress. They do not appear septic. On exam the patient has mild tenderness to palpation of lumbar spine There is no edema or ballottement sign. Lower extremities with [5]/5 strength in all major muscle groups Upper extremities show [5]/5 strength in all major muscle groups. [] [2]/4DTR all UE and LE b/l Patient shows a negative Homans, Benitez's, negative Babinski's negative clonus bilaterally. negative straight leg raise bilaterally. Straight leg raise is negative today Cranial nerves II through XII are grossly intact. There is FROM that is painless of the b/l UE and LE in all major joints [w/o pain]. They are intact to light touch sensation in L2 to S1 nerve distribution. Patient has palpable dorsalis pedis was posterior tibial pulses. Compartments are soft and compressible. Incisions are clean dry and intact - Labs CBC & Chem 7: 12/11/21 04:48 12/11/21 04:48 Assessment and Plan Assessment: 51-year-old male postoperative day 2 L5-S1 MISTLLIF 1. 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 L5-S1 Spondylolysis Plan: -Appreciate automation consultant and team management. -Activity: Ambulate QID, OOB all meals, up and about, limit lifting bending twisting to less than 5 lbs. Use walker or cane if needed for stability. -Daily PT/OT, increase ambulation strength and balance. -Brace when up and about, not needed in bed or chair -Pain control: Adequate at this time -Meds: reviewed -GI ppx: senna, Miralax -DVT PPX: OK to restart Heparin tonight -Hygiene: Shower today. Maintain dressing clean and dry. Meticulous cleaning after BMs away from incision site -Encourage IS 10x/hr -Dispo: Home today
--- NOTE | 2021-12-12 11:04 | P.DS ---
Providers Date of admission: 12/10/21 05:53 Attending physician: Brian Lyon DO Consults: 12/10/21 10:50 Consult Physician Routine Consulting Provider: Judie Prado Reason/Comments: Medical Management Do you want consulting provider notified?: Yes [facility] Course: Spine Surgery Discharge Summary Note Admission Date: 12/10/2021 Discharge Date: 12/12/2021 Providers: Sonali Principal Diagnosis: L5 spondylolysis with listhesis Procedures: L5 S1 MIS TLIF Discharge Medications: See See Allergies: See list Hospital Course: The patient was evaluated preoperatively and found to have the diagnosis of L5 spondylolysis with listhesis and low back pain. They underwent appropriate preoperative care and were willing to undergo the intended procedure. They underwent a successful L5-S1 minimally invasive transforaminal lumbar interbody fusion, were recovered appropriately and sent to the floor. While on the floor they worked with physical therapy, occupational therapy and nursing to enhance their recovery experience. Their pain was well controlled through their stay and they were started on appropriate medications, DVT ppx modalities, activity and dietary needs. Daily labs were monitored closely, and transfusions were only used when necessary. Medicine as well as other consulting services have made their input and have helped with our team approach and multidisciplinary care. PT milestones have been met and passed and they have made the recommendation of home for this patient and treating providers agree with this care path. The patient will be discharged home with appropriate medications, instructions and follow-up information and in stable condition. Patient Condition at Discharge: Stable Plan - Discharge Summary Discharge Rx Participant: Yes New Discharge Prescriptions: New cefaDROXiL [Duricef] 500 mg PO Q12HR #10 cap Cyclobenzaprine [Flexeril] 10 mg PO HS PRN #40 tab PRN Reason: Spasms Gabapentin 300 mg PO TID #90 cap HYDROcodone/APAP 5-325MG [[place] 5-325] 1 - 2 tab PO Q4HR PRN #56 tab PRN Reason: Pain Sennosides/Docusate Sodium [Senna Plus 8.6-50 mg Softgel] 1 each PO BID #20 capsule Continue lisinopriL [Zestril] 10 mg PO QAM Atorvastatin [Lipitor] 20 mg PO QAM Loratadine [Claritin] 10 mg PO DAILY PRN PRN Reason: Allergy Symptoms Nitroglycerin Sl Tabs [Nitrostat] 0.4 mg SUBLINGUAL Q5M PRN PRN Reason: Chest Pain Discontinued Meloxicam 15 mg PO DAILY No Action Cyclobenzaprine [Flexeril] 10 mg PO TID PRN #15 tab PRN Reason: Muscle Spasm Discharge Medication List Atorvastatin [Lipitor] 20 mg PO QAM 07/01/21 [History] Cyclobenzaprine [Flexeril] 10 mg PO TID PRN #15 tab 07/01/21 [Rx] Loratadine [Claritin] 10 mg PO DAILY PRN 07/01/21 [History] lisinopriL [Zestril] 10 mg PO QAM 07/01/21 [History] Nitroglycerin Sl Tabs [Nitrostat] 0.4 mg SUBLINGUAL Q5M PRN 10/29/21 [History] Cyclobenzaprine [Flexeril] 10 mg PO HS PRN #40 tab 12/12/21 [Rx] Gabapentin 300 mg PO TID #90 cap 12/12/21 [Rx] HYDROcodone/APAP 5-325MG [[place] 5-325] 1 - 2 tab PO Q4HR PRN #56 tab 12/12/21 [Rx] Sennosides/Docusate Sodium [Senna Plus 8.6-50 mg Softgel] 1 each PO BID #20 capsule 12/12/21 [Rx] cefaDROXiL [Duricef] 500 mg PO Q12HR #10 cap 12/12/21 [Rx] Follow up Appointment(s)/Referral(s): [facility], [NON-STAFF] - As Needed Brian Lyon DO [Doctor of Osteopathic Medicine] - 12/23/21 3:50 pm Aubrey Cook MD [Primary Care Provider] - 12/19/21 10:30 am (we recommend to check your blood test with your doctor including white cell count) Patient Instructions/Handouts: Posterior Lumbar Interbody Fusion (DC) Activity/Diet/Wound Care/Special Instructions: Spine Discharge and Recovery Instructions Date of Surgery: 12/10/2021 Diagnosis: L5 S1 spondylolysis Procedure: L5-S1 minimally invasive transforaminal lumbar interbody fusion Medications: See list All medication refills should be obtained through your primary care doctor or your clinic spine surgeon. Please discuss prescription refills at your follow up appointment. Do not call the hospital for medication refills. Dressing: Leave your dressing in place for a total of 3 days post operatively. Then you may remove your dressing and leave open to air. Keep the area clean and if not able to keep area clean, then cover with sterile gauze and tape. Showering: You may shower 3 days after your procedure allowing soap and water to run over incision. Do not scrub. Do not soak. Blot dry. Follow up: Please confirm a follow up appointment with your surgeon 2 weeks post operatively. Please make an appointment to follow up with your PCP in 1-2 weeks after surgery for evaluation 3 phase, 3-week plan POST OP WEEKS 1-3 1. Lifting/carrying/pushing/pulling limited to less than 5 pounds. 2. Do not sit for longer than 15 minutes at one time. Get up and walk around. Prolonged sitting is NOT advised. If you lay down, see if you can tolerate laying down on you front (belly side) 3. Walk for periods of 15 minutes = 1 mile but no longer; do it multiple times times each day. 4.Ice your low back after activity. POST OP WEEKS 3-6 1. Lifting limited to less than 20 pounds. 2. Do not sit for longer than 30 minutes at a time. Frequently change positions. Use a sit-to stand workstation or take frequent breaks from sitting if you have returned to work. 3. Walk for 30 minutes each day. If possible, do these three or more times a day POST OP WEEKS 6+ At your 6-week appointment we will give you a physical therapy referral to focus on a core stabilization and strengthening program. You should also work on leg & buttock strengthening, hamstring & quadriceps stretching, and continue a low impact aerobic activity program such as swimming, walking, or riding a station [place] bicycle. During the initial 6 weeks after your surgery, you are at the highest risk of re-injuring your spine. You should generally avoid BLTs (bending, lifting and twisting combination motions) and follow the above guidelines to reduce the chance of reinjury. You can anticipate post op appointments in our office at approximately 3 weeks and 6 weeks after your surgery. INCISION CARE: If your incision is not draining you do NOT need to cover it with a dressing. Keep your incision clean, dry and intact. In most cases, we apply skin glue, leanne or sutures to the incision at the time of surgery. This will be like a crust or have the appearance of a scab and will fall off in time on its own. The stitches or leanne need to be removed at 3 weeks post op appointment. You may begin to shower 3 days after surgery (this allows the glue to hagan well). However, please avoid scrubbing the incision site or peeling off any of the skin glue. This will ensure optimal healing of your incision. Also, during this time avoid soaking the incision area in water - this includes swimming pools, hot tubs or baths. No ointments, lotions or oils on the incision until your surgeon allows. Leave leanne, sutures or glue in place. Neurological dysfunction that comes on suddenly can also be a sign of a stroke. Below some common symptoms of a stroke are listed: B - balance difficulty such as sudden onset walking or leaning to one side - NEW E - eye problem such as sudden double vision or trouble seeing on one side - NEW F - Facial weakness or numbness on one side - NEW A - Arm or leg weakness or numbness on one side - NEW S - Slurred speech or difficulty with word finding - NEW T - Time is BRAIN! Call 911 as soon as you recognize these symptoms Diet: Consume a regular diet rich in vegetables and lean protein such as chicken or fish. You should consume in a ratio of approximately 20% fats|40% carbohydrates|40%protein. Vegetables, sweet potatoes, brown rice or quinoa are examples of good carbohydrates. Chips, white bread, cookies and sweets/sugar are examples of bad carbohydrates. Limit your bad carbs, go wild with good carbs. 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 (1) Get Active. Physical activity can help people lose weight, control high blood pressure and cholesterol, feel emotionally better, and sleep better. (2) Control Cholesterol. Avoid a diet high in saturated fat, trans fat, & cholesterol. Limit whole milk & cream, ice cream, butter, egg yolks, processed meats (like sausage and hot dogs), and fatty meats. Choose healthy foods that are low in saturated fat, trans fat and cholesterol which include: Fruits and vegetables, fiber rich grain products (like whole grain pasta and brown rice), lean meat such as chicken, fish, nuts, seeds, and legumes. (3) Eat Better. Eat small portions. Shop at the grocery with a list and do not stray from it. Tips for a healthy diet include: Limit sodium intake to less than 1500mg daily, avoid prepackaged, processed, and fast foods, choose a diet rich in fruits, vegetables, and whole grain, high fiber foods, and limit saturated & cholesterol in your diet. (4) Manage Blood Pressure. If you have high blood pressure, you should have a cuff at home so that you can check your blood pressure regularly. Be sure you have a good cuff. An arm one is generally better than a wrist one. Bring the cuff to a doctor's appointment to validate that the measurements that your cuff are taking are accurate. Take your blood pressure twice daily when you are sitting down and relaxing. Record the numbers in a log and bring this log with you to your doctors' appointments. (5) Lose Weight if your BMI is above 25. A healthy BMI is between 19-25. To calculate Your BMI, you may use a Standard BMI Calculator on the NIH BMI website: <www.nhlbi.nih.gov/guidelines/obesity/BMI/bmicalc.htm>. Weigh oneself daily. If you are overweight, set a goal to lose weight. A pound a week loss if needed is a good target. (6) Reduce Blood Sugar. Limit foods and liquids with "added sugars." (Added sugars include sucrose, fructose, glucose, maltose, dextrose, high fructose corn syrup, corn syrup, concentrated fruit juice and honey). (7) Stop Smoking. If you smoke, quitting smoking is one of the best things that you can do for your health. Smoking increases your risk of heart attack, stroke, and peripheral vascular disease, which is a build-up of plaque in your arteries. Please discard all the cigarettes and lighters in your house. Have a plan for what you will do when you have the urge to smoke. Direct and second- hand smoke shortens your life as well as the lives of your family, friends and others around you. For your health and the health of those around you, please consider quitting! Proper Bending Body Mechanics: Maintain a wide stance with one foot slightly in front of the other. Keep your back straight. Bend utilizing the strength in your hips and knees. Do not bend at the waist. Maintain the lifted object at your waist-level close to your body. Avoid lifting weight that causes immediately pain or pain anywhere in the body afterwards. Smoking/Nicotine If there was ever one thing that you could do to increase your overall health, decrease your risk of cardiovascular problems by about 39% the second you make the choice, it is to STOP SMOKING. Your body's most instant gratification is the second you stop smoking. We have all heard the studies, read the articles but it is true, smoking is extremely bad for your overall health, and moreover it is detrimental to your bone health. Nicotine, IN ANY FORM, kills bone cells, prevents your body from healing fractures, and significantly prolongs healing after surgery. In spine surgery specifically, it increases your risk of not healing your bones to create a fusion and increases your risk of having a revision surgery due to this up to 60%. I know it is hard. I know it feels impossible. But there are ways. Take control of your life. We are here to help you through it. And when you are ready, ask us and we can direct you to help if you desire. Use the START Plan to Quit Smoking (please visit the Helpgu[employer]abe[employer].org website listed below for more information): S = Set a quit date. Choose a date within the next 2 weeks, so you have enough time to prepare without losing your motivation to quit. If you mainly smoke at work, quit on the weekend, so you have a few days to adjust to the change. T = Tell family, friends, and co-workers that you plan to quit. Let your friends and family in on your plan to quit smoking and tell them you need their support and encouragement to stop. Look for a quit portia who wants to stop smoking as well. You can help each other get through the rough times. A = Anticipate and plan for the challenges you'll face while quitting. Most people who begin smoking again do so within the first 3 months. You can help yourself make it through by preparing ahead for common challenges, such as nicotine withdrawal and cigarette cravings. R = Remove cigarettes and other tobacco products from your home, car, and work. Throw away all your cigarettes (no emergency pack!), lighters, ashtrays, and matches. Wash your clothes and freshen up anything that smells like smoke. Shampoo your car, clean your drapes and carpet, and steam your furniture. T = Talk to your doctor about getting help to quit. Your doctor can prescribe medication to help with withdrawal and suggest other alternatives. If you can't see a doctor, you can get many products over the counter at your local pharmacy or grocery store, including the nicotine patch, nicotine lozenges, and nicotine gum. Resources for Quitting Smoking: <https://www.[facility].gov/documents/[facility]/Quit_Tobacco_Resources_for_patients_313480_7.pdf> Supplementation: Take recommended dosages of Vitamin D and Calcium to help fortify your bones and help them to heal. See your health maintenance packet for dosages and recommended levels. DVT/VTE prophylaxis: You will be given compression stockings from the hospital. Wear these daily for the first two weeks after surgery. You may take them off at night. You may be prescribed a medication to help thin your blood. Take this as directed. If you are not prescribed this medication, early and frequent ambulation has been shown to be the best prophylaxis to deep vein thrombosis and sequelae related to this event. Discharge Disposition: HOME WITH HOME HEALTH SERVICES
--- NOTE | 2021-12-12 21:25 | P.PN ---
Subjective This is a pleasant 51 years old male with past medical history of Chest Pain / Angina, Hyperlipidemia, Hypertension Patient presents because of low back pain been going on for several weeks. He has some mild weakness on his legs more of the left side prior to the surgery. And reports improvement in his weakness. He is able to walk. He denies numbness or bowel issue or urinary incontinence. He denies any other symptoms. No chest pain or dyspnea. No vomiting or diarrhea. No abdominal pain or urinary complaints. No headache or dizziness or weakness or numbness He denies alcohol or illicit drugs however he smokes about 1 pack per day and he is counseled but he declined nicotine patch Previous MRI showing L5-S1 b/l pars defects with Grade I anterior listhesis that reduces well on these supine films. Disc height and space at L5-S1 is relatively preserved on MRI, but L4-5 disc space is flattened and dehydrated. There is evidence of old disc herniation at L4-5 noted which causes minor stenosis at this level. There is little to no stenosis at L5-S1 at this time. No other lesion, fracture or dislocation is noted at this time (per Records) 12/11/2021 Patient still complaining from pain at surgical sites which is expected, he denies chest pain or dyspnea or headache or weakness or numbness. He still has no bowel movement but he declined laxative. ((Lumbar spine CT. Showed postoperative changes with no evidence of prosthesis break acute postoperative changes with operative bit of soft tissue swelling, gas and overlying skin leanne. Fluid is seen in the subcutaneous tissue at the operative level without obvious localization.Lumbar spine CT. Showed postoperative changes with no evidence of prosthesis break acute postoperative changes with operative bit of soft tissue swelling, gas and overlying skin leanne. Fluid is seen in the subcutaneous tissue at the operative level without obvious localization.)) Patient is mildly tachycardic, he has some leukocytosis but also he is on steroids. Also he was started on gabapentin by surgery team will follow on the case closely. 12/12/2021 Patient today is awake and alert, looks comfortable lying in bed, he states that his back pain is much better. No other new complaints. No chest pain or dyspnea. No abdominal pain or urinary complaints. He still did not have bowel movement and his total declined any further laxative. Afebrile and hemodynamically stable. Patient also will be discharged on oral antibiotics as per primary team. Objective - Vital Signs Vital signs: Vital Signs Temp 98.5 F 12/12/21 07:19 Pulse 94 12/12/21 07:19 Resp 16 12/12/21 02:00 BP 116/72 12/12/21 07:19 Pulse Ox 98 12/12/21 07:19 Intake & Output 12/12/21 12/12/21 12/13/21 06:59 18:59 06:59 Intake Total 150 Balance 150 Intake: IV 150 Sodium Chloride 0.9% 1, 150 000 ml @ 50 mls/hr IV . Q20H [facility] Rx#:[id number] Other: Voiding Method Toilet # Voids 5 - Exam GENERAL: The patient is alert and oriented x3, not in any acute distress. Well developed, well nourished. HEENT: Pupils are round and equally reacting to light. EOMI. No scleral icterus. No conjunctival pallor. Normocephalic, atraumatic. No pharyngeal erythema. No thyromegaly. CARDIOVASCULAR: S1 and S2 present. No murmurs, rubs, or gallops. PULMONARY: Chest is clear to auscultation, no wheezing or crackles. ABDOMEN: Soft, nontender, nondistended, normoactive bowel sounds. No palpable organomegaly. -MUSCULOSKELETAL: No joint swelling or deformity. Surgical wound in the lower back with the dressing place. Rest of exam is deferred to surgery primary team EXTREMITIES: No cyanosis, clubbing, or pedal edema. NEUROLOGICAL: Gross neurological examination did not reveal any focal deficits. SKIN: No rashes. No petechiae - Labs CBC & Chem 7: 12/11/21 04:48 12/11/21 04:48 Assessment and Plan Assessment: Bilateral L5 Pars defect with spondylolysis , status post Lumbar 5 to Sacral 1 lumbar interbody fusion nicotine dependence Hypertension Hyperlipidemia Plan: This is a pleasant 51 years old male who presents with L5 pars defect status post lumbar fusion Continue with pain management and postop care per orthopedics primary team. DVT prophylaxis at pain management per primary team. Patient is counseled to quit smoking and he agrees to keep trying. declinde Nicotine patch Patient will be discharged on oral antibiotics per primary team Patient was instructed to follow up with his PCP Dr. zazueta in one week and he agrees. Patient medically stable Labs and medication were reviewed.. Continue same treatment. Continue with symptomatic treatment. Resume home medication. Monitor lytes and vitals. DVT and GI prophylaxis. Further recommendations as per clinical course of the patient Thank you for consulting us
--- NOTE | 2021-12-16 09:52 | P.OP ---
Date of Procedure: 12/10/21 Preoperative Diagnosis: 1. 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 L5-S1 Spondylolysis Postoperative Diagnosis: 1. 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 L5-S1 Spondylolysis Procedure(s) Performed: 1. L5-S1 posteriolateral and interbody fusion combined minimally invasive (46360) 2. Insertion of biomechanical device L5-S1 (72380) 3. L5-S1 non segmental instrumentation (60981) 4. Posterior Extradural Laminotomy or Laminectomy for Exploration/ Decompression of Neural Elements L5-S1 (92748) 5. Use of intraoperative neuro monitoring 6. Interpretation of intraoperative fluoroscopy less than 1 hour (66626) Anesthesia: KAROLINA Surgeon: Brian Lyon Green Chain Operator #1: Hannah Resendez (Was present as a scrubbed observer) Estimated Blood Loss (ml): 50 IV fluids (ml): 1,500 Urine output (ml): 0 Pathology: none sent Condition: stable Disposition: PACU Indications for Procedure: Levy Garcia is presenting for evaluation of Lumbar pain. It was my pleasure to have seen and examined Levy Garcia. In our visit today we have had a chance to go over subjective complaints, physical examination findings and treatments including the natural course history without intervention and various interventional options. The patients imaging demonstrates Xrays: This demonstrates bilateral L5 pars defects with spondylolysis and spondylolisthesis Grade I. There is some minor disc height loss at L5-S1, remainder of the discs appear of normal height and hydration. There is facet arthrosis noted at L5-S1 as well with overgrowth of interarticularis region. Overall alignment is fairly well maintained. There is no other fracture or dislocation at this time. No lesions. PI: LL is >10 60:49 deg. AP pelvis shows congruent and level pelvis with no fracture. MRI: Outside MRI is reviewed. This demonstrates aformentioned L5-S1 b/l pars defects with Grade I anterior listhesis that reduces well on these supine films. Disc height and space at L5-S1 is relatively preserved on MRI, but L4-5 disc space is flattened and dehydrated. There is evidence of old disc herniation at L4-5 noted which causes minor stenosis at this level. There is little to no stenosis at L5-S1 at this time. No other lesion, fracture or dislocation is noted at this time. On physical exam, Levy Garcia demonstrates bilateral lower extremity radiculopathy with significant pain and weakness. Upon testing the patient does demonstrate L4_l5 right lower extremity dermatomal deficit and L5- S1 left lower extremity deficits. Lastly his ROM regarding the lumbar spine is restricted due to pain. I have explained to the patient that as their condition progresses it will cause further neurological deficits and eventual paralysis. Based on the patients imaging, physical exam, and the rapid progression and disabling nature of their symptoms, at this time I recommend surgery in the form or a: Lumbar 5 to Sacral 1 transforaminal lumbar interbody fusion. I discussed the risk and benefits of this procedure at length with Levy Garcia. The patient and his family agreed to considered pursuing the procedure abovementioned. Prior to surgery, she should follow up with her PCP (Cardio, ID, IM etc) for clearance. Questions were invited and answered, and the patient wishes to proceed as outlined below. Currently, I am recommendin.Lumbar 5 to Sacral 1 transforaminal lumbar interbody fusion 2.Follow up with PCP for surgical clearance 3.Review of surgical risks and benefits as well as an educational packet on the proposed surgical procedure. Description of Procedure: The patient was seen and examined in the preoperative area. All preoperative protocols were followed. Informed consent was obtained risks and benefits of the procedure were discussed at length. Risks including bleeding infection damage to the surrounding tissue and risk of reoperation were discussed with the patient. Risk of anesthesia up to and including was a discussed with the patient. These are outlined in the risk review. They were willing to accept these risks and all of the risks of surgery. The patient was given a weight- based dose of antibiotics in the form of 2 g Ancef. The patient was seen and evaluated by the anesthesia team who deemed them fit for surgery. The site was marked, the patient was willing to proceed with the procedure. The patient was transferred to the operative suite by the Department of anesthesia. They were then drifted off to sleep by the department anesthesia and GETA was performed. The patient tolerated this well. Thompson catheter was placed by nursing staff, atraumatically. Once confirmation of lines and ventilation the patient was transferred to a prone Panchito table very carefully. All bony prominences including wrists, elbows, axilla, chest, hips, and thighs, and feet were padded very well. Special attention was paid to the genitalia and these were padded accordingly. SCDs were placed on bilateral lower extremities and were connected. Arms were well padded and placed on arm boards up and out in the 90/90 position. Once in position, again we confirmed good ventilation capabilities and that lines were running appropriately. The patient's lumbar spine was then exposed. 1010s were placed outlining the incision site. Standard alcohol was used to clean the incision site and allowed to dry. C-arm was used to biomark the patient and confirm level for incision which was marked with a skin marker. Operative briefing was performed with all teams and everyone in agreement to proceed. The patient was then prepped and draped in a normal sterile fashion. Timeout was then performed and all parties were in agreement with the procedure to be performed. Using fluoroscopic guidance we then targeted pedicles on the right-hand side using Jamshidi and wire method. There are small skin incision was made on the right-hand side and Jamshidi was introduced AP and lateral fluoroscopic guidance was used to target the L5 pedicle on the right once it was targeted a wire was placed in the Jamshidi removed then targeted pedicle similarly on the right-hand side at S1 and a wire was placed as were then clipped to the drapes to hold position. We then turned our attention to the left-hand side a small longitudinal paraspinal skin incision again was made and a wire introduced followed by dilators using AP and lateral fluoroscopic guidance to target the interspace of L5-S1 from the left-hand side. Dilators were placed until a 22 mm 2 was introduced at 70 mm long. This is introduced and confirmed to be in good position under AP and lateral fluoroscopic imaging was then secured to the table with a table arm. The microscope was then brought in and we were able to clean and identify the facets at L5-S1 as well as the pars and pars defect on this side. The eye AP of L5 was completely removed using high-speed bur and osteotome. We then removed the SAP of S1 using high-speed bur and osteotome as well. We then removed to the scar tissue and joint capsule using a Kerrison rongeur. The exiting nerve root was identified and protected and moved out of the way. We then identified the disc space and under lateral fluoroscopic guidance we performed discectomy using a combination of osteotome followed by sequential shaving until the desired height. We then used down-biting curet to scrape the endplates free of any cartilage and remove it with pituitary. Disc was removed with pituitary as well. Bear claws were used to create bleeding endplates. This is all done under lateral fluoroscopic guidance and direct visualization. We then placed ferrous cell bullets as well as autograft anteriorly within the disc space a cage was then selected and while protecting the exiting nerve root and dura carefully was impacted into place under AP and lateral fluoroscopic guidance. The cages then expanded and impacted again to be anteriorly within the disc space. He was then expanded locked into position with the screw. The cages then back filled with autograft and DBM. We then thoroughly irrigated this area perform meticulous hemostasis with FloSeal and bipolar electrocautery. The tubular retractor system was then carefully removed and we proceeded with targeting of pedicles on the left-hand side this is done under AP and lateral fluoroscopic guidance a Jamshidi was introduced to the L5 pedicle on the left and advanced appropriately until in position and a wire was then placed under AP and lateral fluoroscopic guidance was done was then repeated at S1. Screws were then placed at L5 bilaterally under lateral fluoroscopic guidance over the wires once the screws at the back of the vertebral body the wires were removed to prevent them from migrating. Screws then placed in S1 and similar fashion all screws were tested with electrical neuro monitoring and tested above 20 mA. We then sized and selected rods for this area these were then placed subfascially and locked into position using set screws. Posterior lateral decortication was then performed with a retractor and high-speed bur and packed with autograft and allograft. We then final tightened the set screws into position and the tabs were removed. I also fluoroscopic imaging confirmed good reduction as well as placement of cage and screws. The wounds were copiously irrigated with normal sterile saline the fascia was then closed with 0 Vicryl followed by the deep subcu tissue with 0 Vicryl superficial subcu tissue with 2-0 Vicryl and skin with skin leanne. Wound was then cleaned and dressed sterilely with operative foam dressings. The patient was transferred back to their hospital bed atraumatically. . Patient was then awakened and extubated by the department of anesthesia having tolerated the procedure very well with no complications. They were transferred to the postoperative care unit in stable condition.
== END 2021-12-12 11:45 | disposition home health service (06) | DRG 460 ==
LOC: 2ORMAIN 05:53 → 4SSUR 13:18
PROVIDERS: ADMIT Orthopaedic Surgery; ATTEND Orthopaedic Surgery
PROC: 0SG30AJ Fusion of Lumbosacral Joint with Interbody Fusion Device, Posterior Approach, Anterior Column, Open Approach (ICD-10-PCS; principal; 2021-12-10 07:30)
PROC: 00NY0ZZ Release Lumbar Spinal Cord, Open Approach (ICD-10-PCS; principal; 2021-12-10 07:30)
PROC: 4A11X4G Monitoring of Peripheral Nervous Electrical Activity, Intraoperative, External Approach (ICD-10-PCS; principal; 2021-12-10 07:30)
DX: M43.07 Spondylolysis, lumbosacral region (principal); M51.16 Intervertebral disc disorders with radiculopathy, lumbar region; E78.5 Hyperlipidemia, unspecified; M51.26 Other intervertebral disc displacement, lumbar region; F10.21 Alcohol dependence, in remission; M48.061 Spinal stenosis, lumbar region without neurogenic claudication; F17.210 Nicotine dependence, cigarettes, uncomplicated; I10 Essential (primary) hypertension; M43.16 Spondylolisthesis, lumbar region; Z79.1 Long term (current) use of non-steroidal anti-inflammatories (NSAID); Z71.6 Tobacco abuse counseling
CPT/HCPCS: 72100; 72131; 80048; 85025; 85027; 85610; 86850; 86900; 86901; 87070

== ENCOUNTER → 2022-03-25 | Outpatient (CLI) | payer OTHER ==
--- NOTE | 2022-03-25 10:10 | CT ---
EXAMINATION TYPE: CT lumbar spine wo con DATE OF EXAM: 03/25/2022 9:15 AM COMPARISON: CT dated 12/11/2021 HISTORY: Bilateral lower ext burning since surgery in December CT DLP: 531.6 mGycm Automated exposure control for dose reduction was used. Technique: Unenhanced CT of the lumbar spine was performed. Bone and soft tissue window settings are submitted as well as coronal and sagittal reconstructions. FINDINGS: Previous transpedicular fixation of L5 and S1 using 2 rods and 4 screws. No evidence of prosthesis br eak or displacement. L5-S1 disc prosthesis is also noted. Bilateral L5 pars interarticularis break. No significant anterolisthesis or retrolisthesis. No defini te vertebral body collapse or displaced fracture. Tiny multilevel opposing endplate osteophytosis. L1-L2: No significant disc disease, central spinal canal stenosis or neuroforaminal stenosis. L2-L3: No significant disc disease, central spinal canal stenosis or neural foraminal stenosis. L3-L4: Mild diffuse posterior disc bulge, causing no significant central spinal canal stenosis or austin roforaminal stenosis. L4-L5: Artifacts are seen at that level with questionable mild diffuse posterior disc bulge without s ignificant central spinal canal stenosis or neural foraminal stenosis. L5-S1: Mild diffuse posterior disc bulge with focal central protrusion, causing no significant centra l spinal canal stenosis or significant neuroforaminal stenosis with the limitation of the artifacts f rom adjacent prosthesis. Scattered arterial atherosclerotic calcifications. No paraspinal lesion. IMPRESSION: Postoperative changes as described above. Mild degenerative changes of the lumbar spine as described above. No significant central spinal canal stenosis or neuroforaminal stenosis by this CT scan. Further MRI assessment can be considered if clinically required.
== END | disposition home or self-care (01) ==
LOC: RADCTMAIN 08:56
PROVIDERS: ATTEND Orthopaedic Surgery
DX: M47.26 Other spondylosis with radiculopathy, lumbar region (principal); M51.16 Intervertebral disc disorders with radiculopathy, lumbar region
CPT/HCPCS: 72131

== ENCOUNTER → 2022-06-23 | Outpatient (CLI) | payer OTHER ==
[2022-06-23 14:31] VITALS: BP 152/97; PULSE 83; RESP 18; TEMP 98.9
--- NOTE | 2022-06-23 14:53 | P.PAINPG ---
PQRS Measure Charge Sheet Comment: A 51 yr old male with a history of severe and chronic low back pain secondary to lumbar degenerative disc diseases and lumbar spondylosis with facet arthropathy without myelopathy presents today for LBP evaluation. Pain level is currently at 8/10 in intensity, constant, localized in lower lumbar spine, cru shing in character w burning/stabbing sensation shooting towards BL feet. Pain is provoked by bending, activity, walking/ standing for periods of 15 min or more. Pain is alleviated with PT x 6 wks in Sep 2021, heat, ice, medications (Mobic, Lyrica), topicals, laying supine, repositioning and rest. Interventional pain procedures completed include DENIES Patient is currently on Mobic, Lyrica Patient denies any side effects of the medication(s), denies excessive drowsiness or sleepiness, denies suicidal ideation and reports that the current pain medication is helping to control the pain and improve activities of daily living. Patient denies any motor or sensory deficits. Patient denies any fever or night sweats, denies any change in the bowel movements or urination. Physical Examination: -Constitutional: Cooperative. Not in acute distress . - Neurologic: Cranial nerve II to XII intact. No focal neurological deficits. - Psychatric: Alert & oriented x 3. Matching mood & appropriate affect. Judgment and insight intact. - Musculoskeletal: Cervical spine: Muscle bulk/ tone/ strength in the bilateral upper extremities normal Vertebral body tenderness to palpation over Spurling test positive Distraction test positive Facet loading test positive Thoracic spine Muscle bulk / tone/ strength in the bilateral paraspinal muscles normal Vertebral body tender to palpation over Facet loading test positive Lumbar spine: Motor bulk/ tone/ strength lower extremities , thigh and legs : 5/5 Deep tendon reflexes : Normal Knee Jerk. Normal Ankle Jerk . Vertebral body tenderness to palpation over L5 Lumbar Facet Loading Test positive Straight Leg Raise: positive at 30 degrees right side/ left side Gaenslen's Test positive Sacral spine : Severe tenderness over the Sacroiliac joint: right side / left side Range of motion: Flexion of the lumbar spine <60 degrees Range of motion: Extension of the lumbar spine <20 degrees Gaenslen's Test positive Jefferson's Test positive Isaac test: positive right side / left side Thigh Thrust Test Sacral Thrust Test Imaging: CT without contrast of the lumbar spine from 03/25/22 reviewed MRI without contrast of the lumbar spine from 05/23/22 reviewed Assessment and plan: Chronic low back pain secondary to lumbar degenerative disc disease , lumbar spondylosis with facet arthropathy without myelopathy Recommendation of Cauda GARY w lysis. May need a series of injections, up to 3 within a 6 mo period, for optimal pain relief. Risks, benefits of procedure discussed and pt verbalized understanding. Denies anticoagulant use or medical history of diabetes. Fill [place] 5/325mg #18 NF. Use, side effects and adverse reactions discussed. Safe storage discussed. Patient acknowledged understanding. All patient questions answered MAPS reviewed and it was appropriate. I have spent less than 30 minutes on patient care today. Dr Andrew was available by phone for the evaluation of this patient. The time was used to review the medical records including relevant urine studies and Prescription history (MAPs), review of the available imaging, evaluation and examination of the patient, coordination of care with the medical staff and if applicable referring physicians, as well as creation of the medical record PQRS Narrative: Hx Alcohol Use (MH) Yes: None in 2 1/2 yrs now. Home Medications: Ambulatory Orders Atorvastatin [Lipitor] 20 mg PO QAM 07/01/21 Cyclobenzaprine [Flexeril] 10 mg PO TID PRN #15 tab 07/01/21 Loratadine [Claritin] 10 mg PO DAILY PRN 07/01/21 lisinopriL [Zestril] 10 mg PO QAM 07/01/21 Nitroglycerin Sl Tabs [Nitrostat] 0.4 mg SUBLINGUAL Q5M PRN 10/29/21 Cyclobenzaprine [Flexeril] 10 mg PO HS PRN #40 tab 12/12/21 Gabapentin 300 mg PO TID #90 cap 12/12/21 Sennosides/Docusate Sodium [Senna Plus 8.6-50 mg Softgel] 1 each PO BID #20 capsule 12/12/21 cefaDROXiL [Duricef] 500 mg PO Q12HR #10 cap 12/12/21 HYDROcodone/APAP 5-325MG [[place] 5-325] 1 - 2 tab PO Q4HR PRN 3 Days #18 tab 06/23/22 Controlled Substance Measures - Controlled Substance Measures Is patient prescribed a controlled substance at discharge?: Yes When asked, does pt state using other controlled substances?: No If Rx opioid, was Start Talking consent form obtained?: Yes If opioid is for acute pain is fill amount 7 days or less?: Yes Was information provided regarding opioid addiction?: Yes
== END ==
LOC: PNWHC3 13:15
PROVIDERS: ATTEND Specialist
DX: M47.26 Other spondylosis with radiculopathy, lumbar region (principal); M51.16 Intervertebral disc disorders with radiculopathy, lumbar region; R20.2 Paresthesia of skin; G89.29 Other chronic pain
CPT/HCPCS: 99211

== ENCOUNTER 2022-07-24 07:17 | Day surgery (SDC) | payer OTHER ==
[~2022-07-24 07:17] MED LIST changes: -ACETAMINOPHEN TAB 500 MG TAB PO PRN; -GABAPENTIN 300 MG CAP PO PRN; +LACTATED RINGERS 1,000 ML IV SCH; -ONDANSETRON 4 MG/2 ML VIAL IVP PRN; -TRANEXAMIC ACID 1,000 MG in SODIUM CHLORIDE 0.9% 100 ML IVPB PRN
[2022-07-24] MEDS ORDERED: LIDOCAINE 1% (10MG/ML) FOR IV START INTRADERMA ONE (07:50)
[2022-07-24 08:04] VITALS: RESP 16; TEMP 97.5
[2022-07-24] MEDS ORDERED: MIDAZOLAM 2 MG/2 ML VIAL ONE (08:08)
[2022-07-24] MEDS ORDERED: IOPAMIDOL M200 10 ML VIAL ONE (08:08)
[2022-07-24] MEDS ORDERED: methylPREDNISolone ACETATE 80 MG/ML 1 ML VIAL ONE (08:08)
[2022-07-24] MEDS ORDERED: fentaNYL (PF) 50 MCG/ML 2 ML AMP ONE (08:08)
[2022-07-24] MEDS ORDERED: IV FLUID CONTINUATION 1,000 ML IV ONE (08:29)
--- NOTE | 2022-07-24 08:30 | P.PCN ---
Date of Procedure: 07/24/22 Description of Procedure: PREOP DIAGNOSIS: Lumbar postlaminectomy syndrome, and lumbar radiculopathy POSTOP DIAGNOSIS: Lumbar postlaminectomy syndrome, and lumbar radiculopathy PROCEDURE: Caudal epidural steroid injection with epidurolysis and epidurogram under fluoroscopic guidance ANESTHESIA: Local with 1% lidocaine; IV sedation with Versed 2 mg and fentanyl 100 g Sedation supervision start time:811 Sedation supervision ended time:821 Surgeon: Dayami Best EBL: None Specimens removed: None Fluoroscopic image: saved to electronic medical records PROCEDURE INDICATION: The patient with post-laminectomy syndrome with low back pain and radiculopathy radiating down in both legs, here for a caudal epidural steroid injection with epidurolysis. PROCEDURE DESCRIPTION: The patient was seen and identified in the preoperative area. Risks, benefits, complications, and alternatives were discussed with the patient. The patient agreed to proceed with the procedure and signed the consent. IV was started, and vital signs were stable. Patient was taken to the OR and time out was completed. The patient was placed in the prone position on procedure table and a pillow was placed under the abdomen to reduce lumbar lordosis. The lumbosacral area was prepped and draped in the usual sterile fashion. Vital signs were closely monitored during the procedure. Lateral view and the anterior-posterior plates of the sacrum were identified with infiltration of the area overlying the sacral hiatus with 1% lidocaine .A 17 gauge EPIMED epidural needle was used to advance through the sacral hiatus into the caudal epidural space. Isovue contrast 2 mL was injected and the position of the needle was verified to be in the midline. A Epimed catheter was introduced into the epidural space and was advanced towards the L5-S1 interspace under direct fluoroscopic guidance. Multiple passes were made with the catheter for lysis of epidural adhesions. Depo-Medrol 80mg with 10 ml of preservative free normal saline was injected slowly. Additional spread was seen to L4 under fluoroscopy. The needle and the catheter were withdrawn intact. EPIDUROGRAM: Isovue dye 1 ml was injected with spread of the dye into the caudal epidural space and with spread cutoff at S1 prior to epidurolysis. Post ep idurolysis dye 1 ml was injected and spread was seen to L4. COMPLICATIONS: None. DISPOSITION / PLANS: The patient was placed in a supine position and transferred to the recovery area in a stable condition for observation and was discharged from the recovery room after meeting discharge criteria. Home discharge instructions given to the patient by the staff. The patient was reexamined prior to discharge. The patient will schedule a follow up in the clinic in 4 weeks.
[2022-07-24 08:48] VITALS: BP 134/74; PULSE 74
--- NOTE | 2022-07-24 09:21 | FL ---
Intraoperative/procedural fluoroscopic services were provided for CAUDAL EPI W/LYSIS. Total fluorosco py time is 4 seconds with a total of 4 submitted images to PACS. Please see the operative note for fu rther details.
== END 2022-07-24 08:56 | disposition home or self-care (01) ==
LOC: ORPAIN 07:17
DX: M96.1 Postlaminectomy syndrome, not elsewhere classified (principal); M54.16 Radiculopathy, lumbar region; I10 Essential (primary) hypertension; Z79.899 Other long term (current) drug therapy; Z98.890 Other specified postprocedural states
CPT/HCPCS: 62264; 99152; J2250; J1040; J3010; Q9966; C1894

== ENCOUNTER → 2022-08-13 | Outpatient (CLI) | payer OTHER ==
[2022-08-13 13:02] VITALS: BP 167/98; PULSE 95; RESP 18
--- NOTE | 2022-08-13 14:43 | P.PAINPG ---
PQRS Measure Charge Sheet Comment: A 51 yr old male with a history of severe and chronic low back pain secondary to lumbar degenerative disc diseases and lumbar spondylosis with facet arthropathy without myelopathy presents today for evaluation s/p Caudal GARY w Lysis. Pt states he experienced 0% pain relief s/p procedure. Pain level is at 9/10 in intensity by evening after activity, constant, localized in the lower lumbar spine, sore/ achy in character w shooting towards burning feet. Pain is alleviated with PT without relief, home exercise regimen as tolerated, heated massage pad use, chiropractic treatments prior to surgery in Dec 2021, heat, ice, medications (Lodge, Mobic), topicals, repositioning and rest. Interventional pain procedures completed include GARY L4-L5 Patient is currently on Lodge , Mobic Patient denies any side effects of the medication(s), denies excessive drowsiness or sleepiness, denies suicidal ideation and reports that the current pain medication is helping to control the pain and improve activities of daily living. Patient denies any motor or sensory deficits. Patient denies any fever or night sweats, denies any change in the bowel movements or urination. Physical Examination: -Constitutional: Cooperative. Not in acute distress . - Neurologic: Cranial nerve II to XII intact. No focal neurological deficits. - Psychatric: Alert & oriented x 3. Matching mood & appropriate affect. Judgment and insight intact. - Musculoskeletal: Cervical spine: Muscle bulk/ tone/ strength in the bilateral upper extremities normal Vertebral body tenderness to palpation over Spurling test positive Distraction test positive Facet loading test positive Thoracic spine Muscle bulk / tone/ strength in the bilateral paraspinal muscles normal Vertebral body tender to palpation over Facet loading test positive Lumbar spine: Motor bulk/ tone/ strength lower extremities , thigh and legs : 5/5 Deep tendon reflexes : Normal Knee Jerk. Normal Ankle Jerk . Vertebral body tenderness to palpation over L5 Lumbar Facet Loading Test positive Straight Leg Raise: positive at 30 degrees right side/ left side Gaenslen's Test positive Sacral spine : Severe tenderness over the Sacroiliac joint: right side / left side Range of motion: Flexion of the lumbar spine <60 degrees Range of motion: Extension of the lumbar spine <20 degrees Gaenslen's Test positive Jefferson's Test positive Isaac test: positive right side / left side Thigh Thrust Test Sacral Thrust Test Assessment and plan: Chronic low back pain secondary to lumbar degenerative disc disease , lumbar spondylosis with facet arthropathy without myelopathy Recommendation of BL TFESI L5-S1. May need a series, up to 4 within a 12 mo period, for optimal pain relief. Risks, benefits of procedure discussed and pt verbalized understanding. Admits to anticoagulant use or medical history of diabetes. Protocol for discontinuation / continuation of medications ellen pr ocedure discussed. Pt would like to consider an PNS/ IPG placement at a later time, if needed. All patient questions answered I have spent less than 30 minutes on patient care today. Dr Andrew was available by phone for the evaluation of this patient. The time was used to review the medical records including relevant urine studies and Prescription history (MAPs), review of the available imaging, evaluation and examination of the patient, coordination of care with the medical staff and if applicable referring physicians, as well as creation of the medical record - Pain Location Lower Back Non-Pharmacological Interventions: Chiropractic Treatment, Heat, Home Exercise, Ice, Inactivity, Massage, Physical Therapy, Sitting, Stretching Pharmacological Interventions: Epidural, PRN Medication PQRS Narrative: Hx Alcohol Use (MH) Yes: None in 2 1/2 yrs now. Home Medications: Ambulatory Orders Atorvastatin [Lipitor] 20 mg PO QAM 07/01/21 Cyclobenzaprine [Flexeril] 10 mg PO TID PRN #15 tab 07/01/21 Loratadine [Claritin] 10 mg PO DAILY PRN 07/01/21 lisinopriL [Zestril] 10 mg PO QAM 07/01/21 Nitroglycerin Sl Tabs [Nitrostat] 0.4 mg SUBLINGUAL Q5M PRN 10/29/21 Cyclobenzaprine [Flexeril] 10 mg PO HS PRN #40 tab 12/12/21 HYDROcodone/APAP 5-325MG [Lodge 5-325] 1 - 2 tab PO Q4HR PRN 3 Days #18 tab 07/30/22 Lidocaine 5% Patch [Lidoderm] 1 each TP QAM 30 Days #30 patch 07/30/22 Meloxicam [Mobic] 7.5 mg PO DAILY 08/13/22 Controlled Substance Measures - Controlled Substance Measures Is patient prescribed a controlled substance at discharge?: No
== END ==
LOC: PNWHC3 12:36
PROVIDERS: ATTEND Specialist
DX: M47.816 Spondylosis without myelopathy or radiculopathy, lumbar region (principal); M51.36 Other intervertebral disc degeneration, lumbar region; G89.29 Other chronic pain; Z79.01 Long term (current) use of anticoagulants; E11.9 Type 2 diabetes mellitus without complications; Z79.4 Long term (current) use of insulin
CPT/HCPCS: 99211

== ENCOUNTER 2022-10-02 09:28 | Day surgery (SDC) | payer OTHER ==
[2022-10-01 12:10] VITALS: BMI 26.7
[2022-10-02] MEDS ORDERED: LACTATED RINGERS 1,000 ML IV ONE (09:41)
[2022-10-02 09:48] VITALS: TEMP 97.6
[2022-10-02] MEDS ORDERED: IOPAMIDOL M200 10 ML VIAL ONE (09:53)
[2022-10-02] MEDS ORDERED: fentaNYL (PF) 50 MCG/ML 2 ML AMP ONE (09:53)
[2022-10-02] MEDS ORDERED: MIDAZOLAM 2 MG/2 ML VIAL ONE (09:53)
[2022-10-02] MEDS ORDERED: DEXAMETHASONE SOD PHOSPHATE 10 MG/ML 1 ML VIAL ONE (09:53)
--- NOTE | 2022-10-02 10:26 | P.PCN ---
Date of Procedure: 10/02/22 Description of Procedure: DESCRIPTION OF PROCEDURE(S): PREOPERATIVE DIAGNOSIS: Lumbar radiculopathy POSTOPERATIVE DIAGNOSIS: Lumbar radiculopathy PROCEDURE 1. Transforaminal epidural steroid injection under fluoroscopic guidance LEFT L5-S1 and RIGHT L4-5 2. Lumbar epidurogram ANESTHESIA: Local with 1% lidocaine 3 ml ; IV sedation with Versed 2 mg and fentanyle 100 micrograms. PROCEDURE INDICATION: The patient with low back pain and radiculopathy symptoms unresponsive to conservative treatment. PROCEDURE DESCRIPTION / TECHNIQUE: Fluoroscopic image was saved into the electronic medical record The patient was seen and identified in the preoperative area. Risks, benefits, complications, and alternatives were discussed with the patient. The patient agreed to proceed with the procedure and signed the consent. IV was started, and vital signs were stable. Patient had recent lumbar fusion L4 5 L5-S1. He had a caudal epidural with lysis of adhesions in which she had no relief. He recommended doing bilateral transforaminal epidural steroid injections at L5-S1. Patient has been having complaints of neuropathic pain in his bilateral lower extremities the sole of his feet and his calf. He also endorses decreased range of motion and weakness in his lower extremity's bilaterally. MRI was reviewed that did not show any significant claudication Patient was taken to the OR and time out was completed. The patient was placed in the prone position on procedure table and a pillow was placed under the abdomen to reduce lumbar lordosis. The lumbosacral area was prepped and draped in the usual sterile fashion. Vital signs were closely monitored during the procedure. Conscious sedation was used. Using oblique fluoroscopy, in for neural approach was utilized for the L5-S1 transforaminal epidural steroid injection. Patient had hardware that was impeding visualization of the L5-S1 neuroforamen. L4-L5 space was identified in the oblique position and a 22-gauge 3-1/2 inch spinal needle was advanced after local anesthetic was infiltrated. It was advanced to the superior articular process and vertebral body of L5. Then under lateral fluoroscopic guidance needle was advanced into the neural foramen. One mL of Isovue 180 was injected after negative aspiration for blood and CSF. It showed appropriate placement of the needle and negative washout effect with subsequent imaging. In the AP image spread of contrast was appreciated around the pedicle of the left L5. Then a solution consisting of 5 mg of dexamethasone 0.5 ML's +4 ML's of preservative free normal saline was injected after negative aspiration for blood and CSF. Patient tolerated the procedure well with no paresthesias. Then, at the right L5-S1 interspace difficulty with advancing a 22-gauge needle secondary to artifact from the pedicular screws. I aborted the right L5-S1 infraneural approach. I then performed a L4-L5 sub-pedicular approach. With 30 oblique imaging 22-gauge 3-1/2 inch spinal needle was advanced after localization with lidocaine 1%. The chin of the Ubaldo dog was a target. Once contact with bone was made under AP imaging the bone was walked off and the needle was placed into the superior aspect of the neural foramen. I then injected 1 mL of Isovue 180 which showed clear delineation of the neural foramen into the epidural space. Then after negative aspiration for blood and CSF I injected 5 mg of dexamethasone with 4 ML's of preservative-free normal saline. Needle was then removed and patient tolerated procedure well. COMPLICATIONS: None COMMENTS: DISPOSITION / PLANS: The patient was placed in a supine position and transferred to the recovery area in a stable condition for observation. There was no evidence of lower extremity motor or sensory deficit after the procedure. Patient was discharged from the recovery room after meeting discharge criteria. Home discharge instructions were given to the patient by the staff. The patient was reexamined prior to discharge. We'll repeat procedure in 4 weeks time
[2022-10-02] MEDS ORDERED: LACTATED RINGERS 1,000 ML IV SCH (10:30)
[2022-10-02 10:39] VITALS: BP 121/80; PULSE 73; RESP 15
--- NOTE | 2022-10-02 10:51 | FL ---
Intraoperative/procedural fluoroscopic services were provided. Total fluoroscopy time is 31 seconds w ith a total of 4 submitted images to PACS. Please see the operative/procedural note for further detai ls.
== END 2022-10-02 10:50 | disposition home or self-care (01) ==
LOC: ORPAIN 09:28
PROVIDERS: ATTEND Anesthesiology
DX: M54.16 Radiculopathy, lumbar region (principal); R20.2 Paresthesia of skin
CPT/HCPCS: 64483; J2250; J1100; J3010; Q9966; 99152

== ENCOUNTER → 2022-10-16 | Outpatient (CLI) | payer OTHER ==
[2022-10-16 14:42] VITALS: BP 162/101; PULSE 95; RESP 18; TEMP 97.9
--- NOTE | 2022-10-16 14:46 | P.PAINPG ---
PQRS Measure Charge Sheet Comment: A 51 yr old male with a history of severe and chronic low back pain secondary to lumbar DDD and spondylosis with facet arthropathy without myelopathy presents today for evaluation BL TFESI (R L4-L5/ L L5-S1). Pt states he experienced 0% pain relief x 2-3 wks s/p procedure. Pain level is provoked at 6 /10 in intensity, constant, localized in the lumbar spine, sharp in character w shooting towards the buttocks, LEs and feet. Pain is provoked by bending. Pain is alleviated with PT x 8 wks in Sep 2021, massage therapy at home, heat, ice, meds (Mobic, Neurontin), Lidoderm, repositioning and rest. Interventional pain procedures completed include Caudal GARY w Lysis Patient is currently on Mobic, Neurontin Patient denies any side effects of the medication(s), denies excessive drowsiness or sleepiness, denies suicidal ideation and reports that the current pain medication is helping to control the pain and improve activities of daily living. Patient denies any motor or sensory deficits. Patient denies any fever or night sweats, denies any change in the bowel movements or urination. Physical Examination: -Constitutional: Cooperative. Not in acute distress . - Neurologic: Cranial nerve II to XII intact. No focal neurological deficits. - Psychatric: Alert & oriented x 3. Matching mood & appropriate affect. Judgment and insight intact. - Musculoskeletal: Cervical spine: Muscle bulk/ tone/ strength in the bilateral upper extremities normal Vertebral body tenderness to palpation over Spurling test positive Distraction test positive Facet loading test positive Thoracic spine Muscle bulk / tone/ strength in the bilateral paraspinal muscles normal Vertebral body tender to palpation over Facet loading test positive Lumbar spine: Motor bulk/ tone/ strength lower extremities , thigh and legs : 5/5 Deep tendon reflexes : Normal Knee Jerk. Normal Ankle Jerk . Vertebral body tenderness to palpation over Lumbar Facet Loading Test positive Straight Leg Raise: positive at 30 degrees right side/ left side Gaenslen's Test positive Sacral spine : Severe tenderness over the Sacroiliac joint: right side / left side Range of motion: Flexion of the lumbar spine <60 degrees Range of motion: Extension of the lumbar spine <20 degrees Gaenslen's Test positive BL Isaac test: positive right side / left side Thigh Thrust Test BL Sacral Thrust Test Assessment and plan: Chronic low back pain secondary to lumbar DDD, spondylosis with facet arthropathy without myelopathy, BL Sacroiliitis Recommendation of BL SI injection. May need a series for optimal pain relief. Risks, benefits of procedure discussed and pt verbalized understanding. Admits anticoagulant use or medical history of diabetes. Protocol for discontinuation / continuation of medications ellen procedure discussed. All patient questions answered I have spent less than 30 minutes on patient care today. Dr Andrew was available by phone for the evaluation of this patient. The time was used to review the medical records including relevant urine studies and Prescription history (MAPs), review of the available imaging, evaluation and examination of the patient, coordination of care with the medical staff and if applicable referring physicians, as well as creation of the medical record PQRS Narrative: Hx Alcohol Use (MH) Yes: None in 2 1/2 yrs now. Home Medications: Ambulatory Orders Cyclobenzaprine [Flexeril] 10 mg PO TID PRN #15 tab 07/01/21 Loratadine [Claritin] 10 mg PO DAILY PRN 07/01/21 lisinopriL [Zestril] 10 mg PO QAM 07/01/21 Nitroglycerin Sl Tabs [Nitrostat] 0.4 mg SUBLINGUAL Q5M PRN 10/29/21 HYDROcodone/APAP 5-325MG [[place]mit 5-325] 1 - 2 tab PO Q4HR PRN 3 Days #18 tab 07/30/22 Meloxicam [Mobic] 7.5 mg PO DAILY PRN 08/13/22 Gabapentin [Neurontin] 800 mg PO TID 09/22/22 Lidocaine 5% Patch [Lidoderm] 1 each TP QAM PRN 09/22/22 Controlled Substance Measures - Controlled Substance Measures Is patient prescribed a controlled substance at discharge?: No
== END ==
LOC: PNWHC3 13:16
PROVIDERS: ATTEND Specialist
DX: M47.816 Spondylosis without myelopathy or radiculopathy, lumbar region (principal); M51.36 Other intervertebral disc degeneration, lumbar region; M46.1 Sacroiliitis, not elsewhere classified
CPT/HCPCS: 99211